=== PATIENT | male | born 1940 | race Caucasian/White ===

== ENCOUNTER → 2017-10-03 | Outpatient (CLI) | payer MEDICARE, OTHER ==
[~2017-10-03] MED LIST: ACET-461 PO; ALPR0.25 PO; ASPI81TA57 PO; ATOR80TA2 PO; Acetaminophen PO; BENA20TA2 PO; CALC-557 PO; CHOL100048 PO; CITA20TA12 PO; CLOP75TA28 PO; CLOP75TA69 PO; CYAN100014 PO; FELO10TA3 PO; FELO5TAB3 PO; HYDROCHLOROTHIAZIDE PO; LISI10TA2 PO; LOVA20TA2 PO; OMEG1CAP51 PO; Omega 3 Polyunsat Fatty Acids PO; POLY17PO23 PO; PSYL1PAC10 PO; PSYL1PAC18 PO; TRAM50TA2 PO; TRAZ-144 PO; TRIAMTERENE PO; Trazodone Hcl PO; VITA1CAP21 PO; [UNRECOGNIZED DRUG - OTHER]
[2017-10-03 10:44] LABS: BASOPHILS # (AUTO) 0.1 10^3/uL (0.0-0.1); BASOPHILS % (AUTO) 1 % (0-10); EOSINOPHILS # (AUTO) 0.3 10^3/uL (0.0-0.3); EOSINOPHILS % (AUTO) 5 % (0-10); HEMATOCRIT 43 % (40-54); HEMOGLOBIN 14.9 G/DL (13.3-17.7); LYMPHOCYTES # (AUTO) 1.7 X 10^3 (1.0-4.0); LYMPHOCYTES % (AUTO) 27 % (12-44); MEAN CORPUSCULAR HEMOGLOBIN 30 PG (25-34); MEAN CORPUSCULAR HGB CONC 35 G/DL (32-36); MEAN CORPUSCULAR VOLUME 86 FL (80-99); MEAN PLATELET VOLUME 10.7 FL (7.4-10.4); MONOCYTES # (AUTO) 0.5 X 10^3 (0.0-1.0); MONOCYTES % (AUTO) 8 % (0-12); NEUTROPHILS # (AUTO) 3.8 X 10^3 (1.8-7.8); NEUTROPHILS % (AUTO) 60 % (42-75); PLATELET COUNT 209 10^3/uL (130-400); RED BLOOD COUNT 4.97 10^6/uL (4.35-5.85); RED CELL DISTRIBUTION WIDTH 13.3 % (10.0-14.5); WHITE BLOOD COUNT 6.3 10^3/uL (4.3-11.0)
[2017-10-03 11:05] LABS: ALANINE AMINOTRANSFERASE 16 U/L (0-55); ALBUMIN 4.3 GM/DL (3.2-4.5); ALKALINE PHOSPHATASE 51 U/L (40-136); BILIRUBIN,TOTAL 1.4 MG/DL (0.1-1.0); BUN/CREATININE RATIO 20; CALCIUM 9.6 MG/DL (8.5-10.1); CARBON DIOXIDE 22 MMOL/L (21-32); CHLORIDE 106 MMOL/L (98-107); CREATININE SERUM 1.07 MG/DL (0.60-1.30); GFR ESTIMATED > 60; GLUCOSE 97 MG/DL (70-105); POTASSIUM 4.3 MMOL/L (3.6-5.0); SODIUM 139 MMOL/L (135-145); TOTAL PROTEIN 7.5 GM/DL (6.4-8.2)
[2017-10-03 11:45] LABS: ERYTHROCYTE SEDIMENTATION RATE 10 MM/HR (0-30)
== END ==
LOC: RAD 10:19
PROVIDERS: ATTEND Internal Medicine
DX: M54.16 Radiculopathy, lumbar region (principal)
CPT/HCPCS: 36415; 80053; 85025; 85652

== ENCOUNTER → 2018-03-31 | Outpatient (CLI) | payer MEDICARE, OTHER | LOC: CARD 08:19 | PROVIDERS: ATTEND Physician Assistant | DX: I25.10 Atherosclerotic heart disease of native coronary artery without angina pectoris (principal); I10 Essential (primary) hypertension; E78.5 Hyperlipidemia, unspecified | CPT/HCPCS: 93306 ==

== ENCOUNTER 2018-10-13 15:33 | Observation (INO) | payer MEDICARE, OTHER ==
[~2018-10-13] VITALS: Ht 182.9 cm; Wt 111.6 kg
--- OUTSIDE RECORDS SUMMARY | 2018-10-13 15:38 | XMS REPORT | Clinical Summary ---
Author Author User, [employer] Organization [facility] Address Unknown Phone Unavailable Allergies, Adverse Reactions, Alerts Allergy Name Reaction Description Start Date Severity Status Provider No Known Allergies [place] Main Conditions or Problems Problem Name Problem Code Onset Date Status Entry Date Provider Comment Standard Description Annotate TINEA CRURIS 110.3 Resolved Marielena Medina Dermatophytosis of groin and perianal area ELEVATED BLOOD PRESSURE WITHOUT DIAGNOSIS OF HYPERTENSION 796.2 Resolved Marielena Medina Elevated blood pressure reading without diagnosis of hypertension OBESITY 278.00 Resolved Marielena Medina Obesity, unspecified HYPERTENSION 401.1 Active Marielena Medina Benign essential hypertension HYPERCHOLESTEROLEMIA 272.0 Active Marielena Medina Pure hypercholesterolemia ANEMIA NOS 285.9 Resolved Marielena Medina Anemia, unspecified HYPERGLYCEMIA, MILD 790.6 Resolved Marielena Medina Other abnormal blood chemistry DIABETES MELLITUS, NONINSULIN DEPENDENT (NIDDM) 250.02 Active Marielena Medina Diabetes mellitus without mention of complication, type II or unspecified type, uncontrolled VITAMIN B12 DEFICIENCY 266.2 Active Marielena Medina Other B-complex deficiencies MICROALBUMINURIA 791.0 Active Marielena Medina Proteinuria SINUSITIS, SPHENOIDAL, ACUTE 461.3 Resolved Marielena Medina Acute sphenoidal sinusitis KNEE PAIN 719.46 Active Marielena Medina Pain in joint involving lower leg 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 Marielena Medina 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, 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 Marielena Medina Occlusion and stenosis of carotid artery, with cerebral infarction DEPRESSION 311 Active Marielena Medina Depressive disorder, not elsewhere classified ANXIETY 300.00 Active Marielena Medina Anxiety state, unspecified FECAL IMPACTION 560.32 Resolved Marielena Medina Fecal impaction ABDOMINAL PAIN, GENERALIZED 789.07 Resolved Marielena Medina Abdominal pain, generalized Medication List Medication Instructions Start Date Stop Date Generic Name NDC Status Provider Patient Instruction AFRIN SALINE NASAL MIST SOLN 1 SPRAY EACH NOSTRIL TID SALINE SOLN [id number] Active Marielena Medina DYAZIDE 37.5-25 MG CAPS 1 PO Daily TRIAMTERENE-HCTZ 97633731678 No Longer Active Marielena Medina TRAZODONE HCL 50 MG TABS 1 PO AT HS TRAZODONE HCL 76985387038 No Longer Active Marielena Medina FELODIPINE ER 10 MG LV24H-UHQ 1 PO daily FELODIPINE 08682547944 Active Marielena Medina METAMUCIL SMOOTH TEXTURE PACK 1 scoop PO BID PSYLLIUM PACK 77394483292 Active Marielena Medina MIRALAX POWD 1 scoop PO BID POLYETHYLENE GLYCOL 3350 04194919260 Active Marielena Medina XANAX 0.25 MG TABS 1 PO Q6hrs prn ALPRAZOLAM 12436084494 Active Marielena Medina CELEXA 20 MG TABS 1 PO daily CITALOPRAM HYDROBROMIDE 78878224631 Active Marielena Iesha Medina LIPITOR 80 MG TABS 1 PO DAILY ATORVASTATIN CALCIUM 36581375084 No Longer Active Krystina Talbert MULTIVITAMINS TABS 1 PO daily MULTIPLE VITAMIN 43038789088 No Longer Active Marielenabrendon Medina SUPER B-COMPLEX TABS 1 PO DAILY B SRTIWLE-ZFHNCR-QJ 68976890471 No Longer Active Marielena Iesha Medina ALEVE 220 MG TAB 2 PO QHS NAPROXEN SODIUM 43593910234 No Longer Active Marielena Iesha Medina MOBIC 15 MG TABS 1 PO daily MELOXICAM 73113277137 No Longer Active Marielena Iesha Medina LIPITOR 80 MG TABS 1 PO AT HS ATORVASTATIN CALCIUM 70604775819 Active Marielena Iesha Medina PLAVIX 75 MG TABS 1 PO DAILY CLOPIDOGREL BISULFATE 00549769808 Active Marielena Iesha Medina ASPIRIN EC LOW DOSE 81 MG TBEC 1 PO DAILY ASPIRIN 41900944307 Active Marielena Iesha Medina LOTENSIN 40 MG TABS 1 po daily BENAZEPRIL HCL 31094689810 No Longer Active Marielenabrendon Medina FISH OIL 1000 MG CAPS 1 PO BID WITH MEALS OMEGA-3 FATTY ACIDS 46985829378 Active Marielena Iesha Medina TYLENOL EXTRA STRENGTH 500 MG TABS 1 PO Q 4 HRS PRN PAIN ACETAMINOPHEN 22834313661 Active Marielena Iesha Medina B COMPLEX CAPS 1 po daily B COMPLEX VITAMINS 62864631590 Active Marielena Iesha Medina PROAIR HFA 108 (90 BASE) MCG/ACT AERS 2 puff Q4 hrs prn wheezing ALBUTEROL SULFATE 96651292880 No Longer Active Marielena Iesha Medina DOXYCYCLINE HYCLATE 100 MG CAP 1 po BID DOXYCYCLINE HYCLATE 49089577300 No Longer Active Marielena ROMERO NASAL SPRAY (DEXAMETHASONE, GENTAMICIN, SALINE) 2 puffs each nostril TID for [address] ROMERO NASAL SPRAY ( DEXAMETHASONE, GENTAMICIN, SALINE) No Longer Active Marielena Medina VITAMIN B-12 1000 MCG TABS 1 PO daily CYANOCOBALAMIN 02681425170 No Longer Active Marielena Medina VITAMIN B-12 1000 MCG TABS 1 PO daily CYANOCOBALAMIN 82762131387 No Longer Active Marielena Medina VITAMIN D 1000 UNIT TABS 1 PO Daily CHOLECALCIFEROL 62442913802 Active Marielena Medina LOVASTATIN 20 MG TABS 1 PO QHS LOVASTATIN 70225134269 No Longer Active Marielena Medina ASPIRIN 81 MG TABS 1 po daily ASPIRIN 49182177146 No Longer Active Marielena Medina ECONAZOLE NITRATE 1 % CREA Apply BID ECONAZOLE NITRATE 41974984877 No Longer Active Marielena Medina Immunizations Vaccine Administration Date Value Standard Description Influenza vaccine given Done influenza virus vaccine, unspecified formulation pneumococcal immunization administered [facility] 2008 pneumococcal polysaccharide vaccine, 23 valent dT (Diphtheria and Tetanus) booster given [facility] Td(adult ) unspecified formulation Vital Signs Date Name Value Unit Range Description blood pressure, diastolic - 8462-4 75 mm[Hg] BP edmondson blood pressure, systolic - 8480-6 142 mm[Hg] BP sys pulse rate E&M - 8867-4 68 /min Heart rate respiratory rate E&M - 9279-1 14 /min Resp rate temperature E&M 98.1 [degF] Body temperature weight E&M - 3141-9 230 [lb_av] Weight Measured blood pressure, diastolic - 8462-4 70 mm[Hg] BP edmondson blood pressure, systolic - 8480-6 138 mm[Hg] BP sys pulse rate E&M - 8867-4 72 /min Heart rate respiratory rate E&M - 9279-1 14 /min Resp rate temperature E&M 98.6 [degF] Body temperature weight E&M - 3141-9 235 [lb_av] Weight Measured blood pressure, diastolic - 8462-4 86 mm[Hg] BP edmondson blood pressure, systolic - 8480-6 110 mm[Hg] BP sys pulse rate E&M - 8867-4 90 /min Heart rate respiratory rate E&M - 9279-1 14 /min Resp rate temperature E&M 98.2 [degF] Body temperature weight E&M - 3141-9 233 [lb_av] Weight Measured blood pressure, diastolic - 8462-4 78 mm[Hg] BP edmondson blood pressure, systolic - 8480-6 130 mm[Hg] BP sys pulse rate E&M - 8867-4 68 /min Heart rate respiratory rate E&M - 9279-1 14 /min Resp rate blood pressure, diastolic - 8462-4 78 mm[Hg] BP edmondson blood pressure, systolic - 8480-6 164 mm[Hg] BP sys pulse rate E&M - 8867-4 66 /min Heart rate respiratory rate E&M - 9279-1 14 /min Resp rate weight E&M - 3141-9 255 [lb_av] Weight Measured Diagnostic Results Date Name Value Unit Range Description Clinical Lists Update: CBC,CMP ER LABS - Chemistry Estimated Glomerular Filtration Rate (calc) 56 mL/min/1.73m2 alanine aminotransferase (SGPT), serum 18 U/L creatinine, serum 1.27 mg/dL sodium, serum 136 mmol/L aspartate aminotransferase (SGOT), serum 16 U/L chloride, serum 106 mmol/L glucose, plasma fasting 146 mg/dL bilirubin, serum, total 1.5 mg/dL albumin, serum 4.1 g/dL potassium, serum 4.7 mmol/L alkaline phosphatase, serum 50 U/L carbon dioxide, venous blood 16 mmol/L urea nitrogen, blood 30 mg/dL protein, total, serum 7.3 g/dL calcium, serum 9.0 mg/dL Clinical Lists Update: CBC,CMP ER LABS - Hematology hematocrit, blood 48 % red blood cell distribution width 13.5 % mean corpuscular volume, RBC 85 fL leukocyte count, blood 12.8 10*3/mm3 erythrocyte (RBC) count 5.69 10*6/mm3 platelet count 205 10*3/mm3 hemoglobin, blood 16.6 g/dL Clinical Lists Update: CMP,CHOL,TRIG,HGA1C - Chemistry albumin, serum 4.5 g/dL alkaline phosphatase, serum 43 U/L urea nitrogen, blood 24 mg/dL calcium, serum 9.4 mg/dL chloride, serum 102 mmol/L cholesterol, serum 194 mg/dL carbon dioxide, venous blood 22.0 mmol/L creatinine, serum 1.0 mg/dL hemoglobin A1C, blood, as % of total hemoglobin 6.2 % potassium, serum 4.5 mmol/L protein, total, serum 6.9 g/dL aspartate aminotransferase (SGOT), serum 16 U/L alanine aminotransferase (SGPT), serum 20 U/L bilirubin, serum, total 0.8 mg/dL triglyceride, serum, fasting 144 mg/dL sodium, serum 136 mmol/L anion gap, serum 17 glucose, plasma fasting 109 mg/dL Estimated Glomerular Filtration Rate (calc) 79 mL/min/1.73m2 Clinical Lists Update: ER LABS - Chemistry Estimated Glomerular Filtration Rate (calc) >60 mL/min/1.73m2 albumin, serum 4.5 g/dL glucose, plasma fasting 123 mg/dL glucose, plasma fasting 105 mg/dL sodium, serum 136 mmol/L sodium, serum 134 mmol/L bilirubin, serum, total 0.8 mg/dL bilirubin, serum, total 1.7 mg/dL alanine aminotransferase (SGPT), serum 21 U/L alanine aminotransferase (SGPT), serum 22 U/L aspartate aminotransferase (SGOT), serum 17 U/L aspartate aminotransferase (SGOT), serum 29 U/L protein, total, serum 7.6 g/dL protein, total, serum 7.8 g/dL potassium, serum 4.1 mmol/L potassium, serum 4.5 mmol/L creatinine, serum 1.09 mg/dL creatinine, serum 1.64 mg/dL carbon dioxide, venous blood 20 mmol/L carbon dioxide, venous blood 22 mmol/L chloride, serum 103 mmol/L chloride, serum 98 mmol/L calcium, serum 9.8 mg/dL calcium, serum 9.9 mg/dL urea nitrogen, blood 19 mg/dL urea nitrogen, blood 28 mg/dL alkaline phosphatase, serum 57 U/L alkaline phosphatase, serum 55 U/L albumin, serum 4.3 g/dL Estimated Glomerular Filtration Rate (calc) 41 mL/min/1.73m2 Clinical Lists Update: ER LABS - Hematology red blood cell distribution width 13.4 % red blood cell distribution width 13.1 % mean corpuscular volume, RBC 85 fL mean corpuscular volume, RBC 84 fL leukocyte count, blood 8.8 10*3/mm3 leukocyte count, blood 9.2 10*3/mm3 erythrocyte (RBC) count 5.46 10*6/mm3 erythrocyte (RBC) count 5.63 10*6/mm3 platelet count 221 10*3/mm3 platelet count 259 10*3/mm3 hemoglobin, blood 16.0 g/dL hemoglobin, blood 16.4 g/dL hematocrit, blood 47 % hematocrit, blood 47 % Clinical Lists Update: ER LABS - Urinalysis appearance, urine Clear Yellow glucose, urine, semiquantitative neg RBC urine by microscopy none bacteria, urine microscopy trace hyaline casts, urine none /[LPF] epithelial cells, urine rare /[LPF] mucus on urinalysis neg blood in urine (hemoglobin) by dipstick neg urobilinogen, urine, semiquantitative (dipstick) normal specific gravity, urine 1.020 pH, urine, semiquantitative 5 nitrite, urine, semiquantitative neg ketones, urine, by test strip neg bilirubin, urine neg protein, urine, semiquantitative (dipstick) 1+ WBC urine on microscopy none {Cells}/[HPF] Clinical Lists Update: IN PT LABS - Chemistry albumin, serum 3.8 g/dL alkaline phosphatase, serum 63 U/L urea nitrogen, blood 24 mg/dL calcium, serum 9.3 mg/dL chloride, serum 106 mmol/L carbon dioxide, venous blood 24 mmol/L creatinine, serum 1.13 mg/dL potassium, serum 3.6 mmol/L protein, total, serum 6.7 g/dL aspartate aminotransferase (SGOT), serum 34 U/L alanine aminotransferase (SGPT), serum 35 U/L bilirubin, serum, total 1.0 mg/dL sodium, serum 138 mmol/L Estimated Glomerular Filtration Rate (calc) >60 mL/min/1.73m2 glucose, plasma fasting 94 mg/dL Clinical Lists Update: IN PT LABS - Hematology hemoglobin, blood 15.5 g/dL platelet count 249 10*3/mm3 erythrocyte (RBC) count 5.42 10*6/mm3 leukocyte count, blood 7.6 10*3/mm3 mean corpuscular volume, RBC 81 fL red blood cell distribution width 12.4 % hematocrit, blood 44 % Office Visit: Dr Medina'ricardo Check Up: Established Patient Visit - Chemistry sodium, serum 131 mmol/L albumin, serum 4.5 g/dL Estimated Glomerular Filtration Rate (calc) 29 mL/min/1.73m2 bilirubin, serum, total 1.7 mg/dL alanine aminotransferase (SGPT), serum 38 U/L aspartate aminotransferase (SGOT), serum 36 U/L protein, total, serum 7.7 g/dL potassium, serum 3.4 mmol/L creatinine, serum 2.20 mg/dL carbon dioxide, venous blood 22 mmol/L chloride, serum 93 mmol/L calcium, serum 10.0 mg/dL urea nitrogen, blood 42 mg/dL alkaline phosphatase, serum 75 U/L glucose, plasma fasting 119 mg/dL Office Visit: Dr Medina'ricardo Check Up: Established Patient Visit - Hematology leukocyte count, blood 9.2 10*3/mm3 mean corpuscular volume, RBC 81 fL red blood cell distribution width 12.4 % erythrocyte (RBC) count 5.30 10*6/mm3 hematocrit, blood 43 % hemoglobin, blood 15.3 g/dL platelet count 244 10*3/mm3 Office Visit: Dr Medina'ricardo Check Up: Established Patient Visit - Urinalysis blood in urine (hemoglobin) by dipstick neg protein, urine, semiquantitative (dipstick) 1+ epithelial cells, urine none /[LPF] hyaline casts, urine 0-2 /[LPF] bacteria, urine microscopy neg RBC urine by microscopy none WBC urine on microscopy 2-5 {Cells}/[HPF] appearance, urine Cloudy Yellow urobilinogen, urine, semiquantitative (dipstick) normal specific gravity, urine 1.015 pH, urine, semiquantitative 5 nitrite, urine, semiquantitative neg glucose, urine, semiquantitative neg bilirubin, urine neg ketones, urine, by test strip 1+ mucus on urinalysis neg Encounters Code Encounter Date Provider Facility CPT-95112 Ofc Vst, Est Level III 16:49:25 CDT Marielena Medina DO, FACP CPT-62451 Ofc Vst, Est Level IV 16:58:37 CDT Marielena Medina DO, FACP CPT-82591 Ofc Vst, Est Level IV 13:23:32 CDT Marielena Medina DO, FACP CPT-87272 Ofc Vst, Est Level III 13:12:49 CDT Marielena Batemanner, DO, FACP CPT-79549 Ofc Vst, Est Level III 16:50:36 [employer]AGE NE[employer] Marielena Flores Adam, DO, FACP CPT-43539 Ofc Vst, Est Level III 16:46:06 CDT Marielena Iesha Flores Adam, DO, FACP CPT-02000 Ofc Vst, Est Level III 12:52:37 CDT Marielena Iesha Flores Adam, DO, FACP CPT-59297 Ofc Vst, Est Level III 13:07:58 [employer] NE[employer] Marielena Flores Adam, DO, FACP CPT-33510 Ofc Vst, Est Level III 15:53:15 [employer]AGE NE[employer] Marielena Flores Adam, DO, FACP CPT-77536 Ofc Vst, Est Level IV 10:22:47 [employer]AGE NE[employer] Marielenabrendon Flores Adam, DO, FACP CPT-90823 Ofc Vst, Est Level IV 10:36:55 CDT Marielena Iesha Flores Adam, DO, FACP CPT-35162 Ofc Vst, Est Level IV 10:08:31 CDT Marielenabrendon Flores Adam, DO, FACP CPT-65032 Ofc Vst, New Level IV 10:02:32 [employer]AGE NEG[employer] Marielenabrendon Flores Adam, DO, FACP CPT-17142 Ofc Vst, Est Level IV 09:55:01 CDT Marielenabrendon Flores Adam, DO, FACP CPT-90798 Ofc Vst, Est Level IV 09:29:34 CDT Marielena Flores Adam, DO, FACP CPT-93003 Ofc Vst, Est Level IV 10:03:08 [employer]AGE NE[employer] Marielena Iesha Flores Adam, DO, FACP CPT-07160 Ofc Vst, Est Level IV 15:27:31 CDT Marielena Tinsleyi Ricardo Adam DO, FACP CPT-02236 Ofc Vst, Est Level V 09:26:28 CDT Marielena Tinsleyi Ricadro Adam DO, FACP CPT-31952 Ofc Vst, Est Level V 10:01:06 CDT Marielena Tinsleybrendon Medina DO, FACP CPT-60634 Ofc Vst, Est Level IV 09:30:43 [employer]AGE NEG[employer]ATOR Marielena Batemanner Marielena Ricardo Adam DO, FACP CPT-68468 Ofc Vst, New Level III 10:54:30 HOSTAGE NEG[employer]ATOR Marielena Tinsleyi Ricardo Adam DO, FACP CPT-28708 Ofc Vst, New Level III 18:13:[address] [facility] Procedures Code Procedure Name Date Entry Date Standard Description CPT-66406 Injection 12:25:11 CDT CPT-J3420 Vitamin b12 injection 12:25:11 CDT CPT-02375 Injection 16:50:36 [employer]AGE NE[employer] CPT-J3420 Vitamin b12 injection 16:50:36 HOSTAGE NEGOTIATOR CPT-26427 Injection 16:46:06 CDT CPT-J3420 Vitamin b12 injection 16:46:06 CDT CPT-G8443 E-Prescribing Medication Sent 12:52:37 CDT CPT-65547 Injection 12:19:33 [employer]AGE NE[employer]IATOR CPT-J3420 Vitamin b12 injection 12:19:33 HOSTAGE NEGOTIATOR CPT-G8443 E-Prescribing Medication Sent 13:07:58 HOSTAGE NEGOTIATOR CPT-G8443 E-Prescribing Medication Sent 16:30:49 CDT CPT-G0439 Medicare Annual Wellness Visit 16:30:49 CDT CPT-69230 Injection 12:50:56 CDT CPT-J3420 Vitamin b12 injection 12:50:56 CDT CPT-G8445 E-Prescribing Not sent due to no medication given 15:53: 15 [employer]AGE NEGOTIATOR CPT-12192 Injection 15:53:15 HOSTAGE NEGOTIATOR CPT-J3420 Vitamin b12 injection 15:53:15 HOSTAGE NEGOTIATOR CPT-07303 Injection 09:46:56 CDT CPT-J3420 Vitamin b12 injection 09:46:56 CDT CPT-G0438 Medicare Annual Wellness Visit Initial 10:22:49 CDT CPT-32856 Injection 10:22:47 HOSTAGE NEGOTIATOR CPT-J3420 Vitamin b12 injection 10:22:47 HOSTAGE NEGOTIATOR CPT-98571 Injection 10:01:34 HOSTAGE NEGOTIATOR CPT-J3420 Vitamin b12 injection 10:01:34 HOSTAGE NEGOTIATOR CPT-66481 Injection 10:36:55 CDT CPT-J3420 Vitamin b12 injection 10:36:55 CDT CPT-23326 Injection 10:08:31 CDT CPT-J3420 Vitamin b12 injection 10:08:31 CDT CPT-98391 Injection 09:05:20 CDT CPT-J3420 Vitamin b12 injection 09:05:20 CDT CPT-35952 Injection 10:02:32 HOSTAGE NEGOTIATOR CPT-J3420 Vitamin b12 injection 10:02:32 HOSTAGE NEGOTIATOR CPT-01612 Injection 09:55:01 CDT CPT-J3420 Vitamin b12 injection 09:55:01 CDT CPT-63696 Injection 09:53:17 CDT CPT-J3420 Vitamin b12 injection 09:53:17 CDT CPT-72141 Injection 14:36:22 CDT CPT-J3420 Vitamin b12 injection 14:36:22 CDT CPT-95533 Injection 09:29:34 CDT CPT-J3420 Vitamin b12 injection 09:29:34 CDT CPT-J3420 Vitamin b12 injection 10:03:08 HOSTAGE NEGOTIATOR CPT-G8443 E-Prescribing Medication Sent 09:26:28 CDT
--- OUTSIDE RECORDS SUMMARY | 2018-10-13 15:39 | XMS REPORT | Clinical Summary ---
Author Author User, [facility] [place] Address Unknown Phone Unavailable Allergies, Adverse Reactions, [...] 1 SPRAY EACH NOSTRIL TID SALINE SOLN [id number] Active Marielena Medina DYAZIDE 37.5-25 MG CAPS 1 PO Daily TRIAMTERENE-HCTZ 92329017229 No Longer Active Marielena Medina TRAZODONE HCL 50 MG TABS 1 PO AT HS TRAZODONE HCL 21458795996 No Longer Active Marielena Medina FELODIPINE ER 10 MG [id number] 1 PO daily FELODIPINE 73589002250 Active Marielena Medina METAMUCIL SMOOTH TEXTURE PACK 1 scoop PO BID PSYLLIUM PACK 32866018223 Active Marielena Medina MIRALAX POWD 1 scoop PO BID POLYETHYLENE GLYCOL 3350 72812661136 Active Marielena Medina XANAX 0.25 MG TABS 1 PO Q6hrs prn ALPRAZOLAM 03533309698 Active Marielena Medina CELEXA 20 MG TABS 1 PO daily CITALOPRAM HYDROBROMIDE 40534416596 Active Marielena Iesha Medina LIPITOR 80 MG TABS 1 PO DAILY ATORVASTATIN CALCIUM 73569105998 No Longer Active Krystina Talbert MULTIVITAMINS TABS 1 PO daily MULTIPLE VITAMIN 57946207372 No Longer Active Marielenabrendon Medina SUPER B-COMPLEX TABS 1 PO DAILY B LEPJIGX-CKHLHC-JL 67288253482 No Longer Active Marielena Iesha Medina ALEVE 220 MG TAB 2 PO QHS NAPROXEN SODIUM 86276877273 No Longer Active Marielena Iesha Medina MOBIC 15 MG TABS 1 PO daily MELOXICAM 25937619504 No Longer Active Marielena Iesha Medina LIPITOR 80 MG TABS 1 PO AT HS ATORVASTATIN CALCIUM 15942960393 Active Krystina Talbert PLAVIX 75 MG TABS 1 PO DAILY CLOPIDOGREL BISULFATE 84281308449 Active Krystina Talbert ASPIRIN EC LOW DOSE 81 MG TBEC 1 PO DAILY ASPIRIN 49472092675 Active Marielena Iesha Medina LOTENSIN 40 MG TABS 1 po daily BENAZEPRIL HCL 42464660851 No Longer Active Marielenabrendon Medina FISH OIL 1000 MG CAPS 1 PO BID WITH MEALS OMEGA-3 FATTY ACIDS 69478413008 Active Marielena Iesha Medina TYLENOL EXTRA STRENGTH 500 MG TABS 1 PO Q 4 HRS PRN PAIN ACETAMINOPHEN 17794169519 Active Marielena Iesha Medina B COMPLEX CAPS 1 po daily B COMPLEX VITAMINS 27109274416 Active Marielena Iesha Medina PROAIR HFA 108 (90 BASE) MCG/ACT AERS 2 puff Q4 hrs prn wheezing ALBUTEROL SULFATE 45120397113 No Longer Active Marielenabrendon Medina DOXYCYCLINE HYCLATE 100 MG CAP 1 po BID DOXYCYCLINE HYCLATE 03504322961 No Longer Active Marielena ROMERO NASAL SPRAY (DEXAMETHASONE, GENTAMICIN, SALINE) 2 puffs each nostril TID for [address] ROMERO NASAL SPRAY ( DEXAMETHASONE, GENTAMICIN, SALINE) No Longer Active Marielena Medina VITAMIN B-12 1000 MCG TABS 1 PO daily CYANOCOBALAMIN 07791951865 No Longer Active Marielena Medina VITAMIN B-12 1000 MCG TABS 1 PO daily CYANOCOBALAMIN 27772036625 No Longer Active Marielena Medina VITAMIN D 1000 UNIT TABS 1 PO Daily CHOLECALCIFEROL 46640454488 Active Marielena Medina LOVASTATIN 20 MG TABS 1 PO QHS LOVASTATIN 13648144352 No Longer Active Marielena Medina ASPIRIN 81 MG TABS 1 po daily ASPIRIN 80562179905 No Longer Active Marielena Medina ECONAZOLE NITRATE 1 % CREA Apply BID ECONAZOLE NITRATE 49882695136 No Longer Active Marielena Medina Immunizations Vaccine Administration Date Value Standard Description Influenza vaccine given Done influenza virus vaccine, unspecified formulation pneumococcal immunization administered [facility] 2008 pneumococcal polysaccharide vaccine, 23 valent dT (Diphtheria and Tetanus) booster given [facility] Td(adult ) unspecified formulation Vital Signs Date [...] Estimated Glomerular Filtration Rate (calc) 56 mL/min/1.73m2 protein, total, serum 7.3 g/dL sodium, serum 136 mmol/L bilirubin, serum, total 1.5 mg/dL alanine aminotransferase (SGPT), serum 18 U/L aspartate aminotransferase (SGOT), serum 16 U/L albumin, serum 4.1 g/dL alkaline phosphatase, serum 50 U/L urea nitrogen, blood 30 mg/dL calcium, serum 9.0 mg/dL chloride, serum 106 mmol/L carbon dioxide, venous blood 16 mmol/L creatinine, serum 1.27 mg/dL potassium, serum 4.7 mmol/L glucose, plasma fasting 146 mg/dL Clinical Lists Update: CBC,CMP ER LABS - Hematology hematocrit, blood 48 % hemoglobin, blood 16.6 g/dL platelet count 205 10*3/mm3 erythrocyte (RBC) count 5.69 10*6/mm3 leukocyte count, blood 12.8 10*3/mm3 red blood cell distribution width 13.5 % mean corpuscular volume, RBC 85 fL Clinical Lists Update: CBC,CMP,FLP,TSH,HGA1C,MICROALBUMIN - Chemistry creatinine, serum 0.9 mg/dL HDL cholesterol, serum 34.0 mg/dL cholesterol, serum 80 mg/dL chloride, serum 103 mmol/L calcium, serum 9.5 mg/dL urea nitrogen, blood 17 mg/dL alkaline phosphatase, serum 58 U/L albumin, serum 4.0 g/dL hemoglobin A1C, blood, as % of total hemoglobin 6.1 % thyroid stimulating hormone, serum 0.81 u[iU]/mL LDL cholesterol, serum 30 mg/dL potassium, serum 4.7 mmol/L protein, total, serum 6.3 g/dL aspartate aminotransferase (SGOT), serum 19 U/L alanine aminotransferase (SGPT), serum 26 U/L bilirubin, serum, total 1.1 mg/dL triglyceride, serum, fasting 81 mg/dL sodium, serum 135 mmol/L anion gap, serum 10 cholesterol/HDL ratio, serum, percent 2.4 glucose, plasma fasting 102 mg/dL Estimated Glomerular Filtration Rate (calc) 89 mL/min/1.73m2 carbon dioxide, venous blood 27.0 mmol/L Clinical Lists Update: CBC,CMP,FLP,TSH,HGA1C,MICROALBUMIN - Hematology red blood cell distribution width 14.8 % mean corpuscular volume, RBC 90 fL leukocyte count, blood 5.9 10*3/mm3 erythrocyte (RBC) count 4.08 10*6/mm3 platelet count 193 10*3/mm3 hemoglobin, blood 11.9 g/dL hematocrit, blood 36.7 % Clinical Lists Update: CBC,CMP,FLP,TSH,HGA1C,MICROALBUMIN - Urinalysis microalbumin, urine, semiquantitative 0.5 mg/dL Clinical Lists Update: CMP,CHOL,TRIG,HGA1C - Chemistry glucose, plasma fasting 109 mg/dL anion gap, serum 17 sodium, serum 136 mmol/L triglyceride, serum, fasting 144 mg/dL bilirubin, serum, total 0.8 mg/dL alanine aminotransferase (SGPT), serum 20 U/L aspartate aminotransferase (SGOT), serum 16 U/L protein, total, serum 6.9 g/dL potassium, serum 4.5 mmol/L hemoglobin A1C, blood, as % of total hemoglobin 6.2 % creatinine, serum 1.0 mg/dL carbon dioxide, venous blood 22.0 mmol/L cholesterol, serum 194 mg/dL chloride, serum 102 mmol/L calcium, serum 9.4 mg/dL urea nitrogen, blood 24 mg/dL alkaline phosphatase, serum 43 U/L albumin, serum 4.5 g/dL Estimated Glomerular Filtration Rate (calc) 79 mL/min/1.73m2 Clinical Lists Update: ER LABS - Chemistry Estimated Glomerular Filtration Rate (calc) 41 mL/min/1.73m2 albumin, serum 4.3 g/dL sodium, serum 134 mmol/L bilirubin, serum, total 1.7 mg/dL alanine aminotransferase (SGPT), serum 22 U/L aspartate aminotransferase (SGOT), serum 29 U/L protein, total, serum 7.8 g/dL potassium, serum 4.5 mmol/L creatinine, serum 1.64 mg/dL carbon dioxide, venous blood 22 mmol/L chloride, serum 98 mmol/L calcium, serum 9.9 mg/dL urea nitrogen, blood 28 mg/dL alkaline phosphatase, serum 55 U/L albumin, serum 4.5 g/dL Estimated Glomerular Filtration Rate (calc) >60 mL/min/1.73m2 glucose, plasma fasting 123 mg/dL sodium, serum 136 mmol/L bilirubin, serum, total 0.8 mg/dL alanine aminotransferase (SGPT), serum 21 U/L aspartate aminotransferase (SGOT), serum 17 U/L protein, total, serum 7.6 g/dL potassium, serum 4.1 mmol/L creatinine, serum 1.09 mg/dL carbon dioxide, venous blood 20 mmol/L chloride, serum 103 mmol/L calcium, serum 9.8 mg/dL urea nitrogen, blood 19 mg/dL alkaline phosphatase, serum 57 U/L glucose, plasma fasting 105 mg/dL Clinical Lists Update: ER LABS - Hematology red blood cell distribution width 13.1 % mean corpuscular volume, RBC 84 fL leukocyte count, blood 9.2 10*3/mm3 erythrocyte (RBC) count 5.63 10*6/mm3 platelet count 259 10*3/mm3 hemoglobin, blood 16.4 g/dL hematocrit, blood 47 % red blood cell distribution width 13.4 % mean corpuscular volume, RBC 85 fL leukocyte count, blood 8.8 10*3/mm3 erythrocyte (RBC) count 5.46 10*6/mm3 platelet count 221 10*3/mm3 hemoglobin, blood 16.0 g/dL hematocrit, blood 47 % Clinical Lists Update: [...] hematocrit, blood 44 % Office Visit: Dr Medina's Check Up: Established Patient Visit - Chemistry [...] neg Encounters Code Encounter Date Provider Facility CPT-48899 Ofc Vst, Est Level III 16:49:25 CDT Marielena Medina DO, FACP CPT-45673 Ofc Vst, Est Level IV 16:58:37 CDT Marielena Medina DO, FACP CPT-57053 Ofc Vst, Est Level IV 13:23:32 CDT Marielena Medina DO, FACP CPT-39132 Ofc Vst, Est Level III 13:12:49 CDT Marielenabrendon Flores Adam, DO, FACP CPT-71343 Ofc Vst, Est Level III 16:50:36 FUNERAL ASSISTANT Marielena Iesha Flores Medina, DO, FACP CPT-83849 Ofc Vst, Est Level III 16:46:06 CDT Marielena Iesha Flores Adam, DO, FACP CPT-66570 Ofc Vst, Est Level III 12:52:37 CDT Marielena Iesha Flores Adam, DO, FACP CPT-55320 Ofc Vst, Est Level III 13:07:58 FUNERAL ASSISTANT Marielena Flores Adam, DO, FACP CPT-98301 Ofc Vst, Est Level III 15:53:15 FUNERAL ASSISTANT Marielena Iesha Flores Adam, DO, FACP CPT-07167 Ofc Vst, Est Level IV 10:22:47 FUNERAL ASSISTANT Marielena Flores Adam, DO, FACP CPT-89990 Ofc Vst, Est Level IV 10:36:55 CDT Marielena Iesha Flores Adam, DO, FACP CPT-75270 Ofc Vst, Est Level IV 10:08:31 CDT Marielenabrendon Flores Adam, DO, FACP CPT-67868 Ofc Vst, New Level IV 10:02:32 FUNERAL ASSISTANT Marielena Flores Adam, DO, FACP CPT-52445 Ofc Vst, Est Level IV 09:55:01 CDT Marielena Iesha Peguero S Adam, DO, FACP CPT-11188 Ofc Vst, Est Level IV 09:29:34 CDT Marielena Iesha Batemanner Marielena Flores Adam, DO, FACP CPT-04817 Ofc Vst, Est Level IV 10:03:08 FUNERAL ASSISTANT Marielena Ieshasydni Medina DO, FACP CPT-28875 Ofc Vst, Est Level IV 15:27:31 CDT Marielena Julian Adam Marielenabrendon Medina DO, FACP CPT-55214 Ofc Vst, Est Level V 09:26:28 CDT Marielena Julian Adam Marielenabrendon Medina DO, FACP CPT-05930 Ofc Vst, Est Level V 10:01:06 CDT Marielena Batemanner Marielenabrendon Medina DO, FACP CPT-30529 Ofc Vst, Est Level IV 09:30:43 FUNERAL ASSISTANT Marielena Julian Adam Medina DO, FACP CPT-09643 Ofc Vst, New Level III 10:54:30 FUNERAL ASSISTANT Marielena Julian Adam Medina DO, FACP CPT-00514 Ofc Vst, New Level III 18:13:55 CDT Marielena Julian Medina [facility] [place] Procedures Code Procedure Name Date Entry Date Standard Description CPT-91585 Injection 12:25:11 CDT CPT-J3420 Vitamin b12 injection 12:25:11 CDT CPT-39397 Injection 16:50:36 FUNERAL ASSISTANT CPT-J3420 Vitamin b12 injection 16:50:36 FUNERAL ASSISTANT CPT-35766 Injection 16:46:06 CDT CPT-J3420 Vitamin b12 injection 16:46:06 CDT CPT-G8443 E-Prescribing Medication Sent 12:52:37 CDT CPT-58050 Injection 12:19:33 FUNERAL ASSISTANT CPT-J3420 Vitamin b12 injection 12:19:33 FUNERAL ASSISTANT CPT-G8443 E-Prescribing Medication Sent 13:07:58 FUNERAL ASSISTANT CPT-G8443 E-Prescribing Medication Sent 16:30:49 CDT CPT-G0439 Medicare Annual Wellness Visit 16:30:49 CDT CPT-22721 Injection 12:50:56 CDT CPT-J3420 Vitamin b12 injection 12:50:56 CDT CPT-G8445 E-Prescribing Not sent due to no medication given 15:53: 15 FUNERAL ASSISTANT CPT-53786 Injection 15:53:15 FUNERAL ASSISTANT CPT-J3420 Vitamin b12 injection 15:53:15 FUNERAL ASSISTANT CPT-02287 Injection 09:46:56 CDT CPT-J3420 Vitamin b12 injection 09:46:56 CDT CPT-G0438 Medicare Annual Wellness Visit Initial 10:22:49 CDT CPT-89909 Injection 10:22:47 FUNERAL ASSISTANT CPT-J3420 Vitamin b12 injection 10:22:47 FUNERAL ASSISTANT CPT-95218 Injection 10:01:34 FUNERAL ASSISTANT CPT-J3420 Vitamin b12 injection 10:01:34 FUNERAL ASSISTANT CPT-38495 Injection 10:36:55 CDT CPT-J3420 Vitamin b12 injection 10:36:55 CDT CPT-47539 Injection 10:08:31 CDT CPT-J3420 Vitamin b12 injection 10:08:31 CDT CPT-94385 Injection 09:05:20 CDT CPT-J3420 Vitamin b12 injection 09:05:20 CDT CPT-50381 Injection 10:02:32 FUNERAL ASSISTANT CPT-J3420 Vitamin b12 injection 10:02:32 FUNERAL ASSISTANT CPT-56388 Injection 09:55:01 CDT CPT-J3420 Vitamin b12 injection 09:55:01 CDT CPT-84926 Injection 09:53:17 CDT CPT-J3420 Vitamin b12 injection 09:53:17 CDT CPT-89825 Injection 14:36:22 CDT CPT-J3420 Vitamin b12 injection 14:36:22 CDT CPT-10413 Injection 09:29:34 CDT CPT-J3420 Vitamin b12 injection 09:29:34 CDT CPT-J3420 Vitamin b12 injection 10:03:08 FUNERAL ASSISTANT CPT-G8443 E-Prescribing Medication Sent 09:26:28 CDT
--- OUTSIDE RECORDS SUMMARY | 2018-10-13 15:43 | XMS REPORT ---
Author PETE Dinero [facility] e[employer] Address Unknown Phone Unavailable Care Team Providers Care Tire Inspector Name Role Phone PETE RAMIREZ Unavailable Allergies No Known Allergies Problems Problem Type Condition Code Onset Dates Condition Status Assessment Encounter for immunization Z23 Active Problem Need for prophylactic vaccination and inoculation, Influenza V04.81 Active Medications No Known Medications Procedures Procedure Coding System Code Date FLUARIX QUAD P-FREE 3 AND UP .50 2015 CPT-4 69065 Jun 25, 2016 SINGLE IMMUNIZATION ADMIN CPT-4 87728 Jun 25, 2016 TDAP (BOOSTRIX) CPT-4 81027 Jun 25, 2016 IMMUNIZATION ADMIN, EACH ADD (please include units) CPT-4 13569 Jun 25, 2016 Results No Known Results Immunizations Vaccine Administration Date TDAP (BOOSTRIX) Jun 25, 2016 FLUARIX QUAD P-FREE 3 AND UP .50 2015Jun 25, 2016 Summary Purpose eClinicalWorks Submission
--- OUTSIDE RECORDS SUMMARY | 2018-10-13 15:43 | XMS REPORT ---
Author PETE Dinero [facility] e[employer] Address Unknown Phone Unavailable Care Team Providers Care Openstack Developer Name Role Phone PETE RAMIREZ CP Unavailable Allergies No Known Allergies Problems Problem Type Condition Code Onset Dates Condition Status Assessment Encounter for immunization Z23 Active Problem Need for prophylactic vaccination and inoculation, Influenza V04.81 Active Medications No Known Medications Procedures Procedure Coding System Code Date PCV 13 CPT-4 57083 Jun 10, 2015 SINGLE IMMUNIZATION ADMIN CPT-4 32050 Jun 10, 2015 FLUZONE TRIV HIGH DOSE (65 & UP)-SANOFI PASTEUR-2014 CPT-4 41525 Jun 10, 2015 IMMUNIZATION ADMIN, EACH ADD (please include units) CPT-4 33662 Jun 10, 2015 Results No Known Results Immunizations Vaccine Administration Date FLUZONE TRIV HIGH DOSE (65 & UP)-SANOFI PASTEUR-2014Jun 10, 2015 PCV 13 Jun 10, 2015 Summary Purpose eClinicalWorks Submission
--- OUTSIDE RECORDS SUMMARY | 2018-10-13 15:43 | XMS REPORT | Clinical Summary ---
Author Author User, ValnevaIsaac Organization [facility] [place] Address Unknown Phone Unavailable Allergies, Adverse Reactions, [...] Depressive disorder, not elsewhere classified ANXIETY 300.00 Resolved Marielena Medina Anxiety state, unspecified FECAL IMPACTION 560.32 Resolved Marielena Medina Fecal impaction ABDOMINAL PAIN, GENERALIZED 789.07 Resolved Marielena Medina Abdominal pain, generalized Medication List Medication Instructions Start Date Stop Date Generic Name NDC Status Provider Patient Instruction AFRIN SALINE NASAL MIST SOLN 1 SPRAY EACH NOSTRIL TID SALINE SOLN 02468735771 Active Marielena Medina DYAZIDE 37.5-25 MG CAPS 1 PO Daily TRIAMTERENE-HCTZ 24735519090 No Longer Active Marielena Medina TRAZODONE HCL 50 MG TABS 1 PO AT HS TRAZODONE HCL 01357995512 No Longer Active Marielena Medina FELODIPINE ER 10 MG [id number] 1 PO daily FELODIPINE 82137550375 Active Marielena Medina METAMUCIL SMOOTH TEXTURE PACK 1 scoop PO BID PSYLLIUM PACK 47973951143 Active Marielena Medina MIRALAX POWD 1 scoop PO BID POLYETHYLENE GLYCOL 3350 85387550520 Active Marielena Medina XANAX 0.25 MG TABS 1 PO Q6hrs prn ALPRAZOLAM 60080475811 Active Marielena Medina CELEXA 20 MG TABS 1 PO daily CITALOPRAM HYDROBROMIDE 97806436404 Active Marielena Iesha Medina LIPITOR 80 MG TABS 1 PO DAILY ATORVASTATIN CALCIUM 43426230587 No Longer Active Krystina Talbert MULTIVITAMINS TABS 1 PO daily MULTIPLE VITAMIN 31125757419 No Longer Active Marielenabrendon Medina SUPER B-COMPLEX TABS 1 PO DAILY B [id number] 45615614236 No Longer Active Marielena Iesha Medina ALEVE 220 MG TAB 2 PO QHS NAPROXEN SODIUM 55723747358 No Longer Active Marielena Iesha Medina MOBIC 15 MG TABS 1 PO daily MELOXICAM 14685743970 No Longer Active Marielena Iesha Medina LIPITOR 80 MG TABS 1 PO AT HS ATORVASTATIN CALCIUM 33155670849 Active Krystina Talbert PLAVIX 75 MG TABS 1 PO DAILY CLOPIDOGREL BISULFATE 26535281861 Active Krystina Talbert ASPIRIN EC LOW DOSE 81 MG TBEC 1 PO DAILY ASPIRIN 53863199055 Active Marielena Iesha Medina LOTENSIN 40 MG TABS 1 po daily BENAZEPRIL HCL 64514746175 No Longer Active Marielenabrendon Medina FISH OIL 1000 MG CAPS 1 PO BID WITH MEALS OMEGA-3 FATTY ACIDS 35496175979 Active Marielena Iesha Medina TYLENOL EXTRA STRENGTH 500 MG TABS 1 PO Q 4 HRS PRN PAIN ACETAMINOPHEN 05551620869 Active Marielena Iesha Medina B COMPLEX CAPS 1 po daily B COMPLEX VITAMINS 96221648362 Active Marielena Iesha Medina PROAIR HFA 108 (90 BASE) MCG/ACT AERS 2 puff Q4 hrs prn wheezing ALBUTEROL SULFATE 86567842267 No Longer Active Marielenabrendon Medina DOXYCYCLINE HYCLATE 100 MG CAP 1 po BID DOXYCYCLINE HYCLATE 77144443987 No Longer Active Marielena ROMERO NASAL SPRAY (DEXAMETHASONE, GENTAMICIN, SALINE) 2 puffs each nostril TID for [address] ROMERO NASAL SPRAY ( DEXAMETHASONE, GENTAMICIN, SALINE) No Longer Active Marielena Medina VITAMIN B-12 1000 MCG TABS 1 PO daily CYANOCOBALAMIN 39368909889 No Longer Active Marielena Medina VITAMIN B-12 1000 MCG TABS 1 PO daily CYANOCOBALAMIN 88596635063 No Longer Active Marielena Medina VITAMIN D 1000 UNIT TABS 1 PO Daily CHOLECALCIFEROL 46337725274 Active Marielena Medina LOVASTATIN 20 MG TABS 1 PO QHS LOVASTATIN 64511240051 No Longer Active Marielena Medina ASPIRIN 81 MG TABS 1 po daily ASPIRIN 19330680262 No Longer Active Marielena Medina ECONAZOLE NITRATE 1 % CREA Apply BID ECONAZOLE NITRATE 01353244218 No Longer Active Marielena Medina Immunizations Vaccine Administration Date Value Standard Description Influenza vaccine given Done influenza virus vaccine, unspecified formulation pneumococcal immunization administered [facility] 2008 pneumococcal polysaccharide vaccine, 23 valent dT (Diphtheria and Tetanus) booster given [facility] Td(adult ) unspecified formulation Vital Signs Date Name Value Unit Range Description blood pressure, diastolic - 8462-4 72 mm[Hg] BP edmondson blood pressure, systolic - 8480-6 134 mm[Hg] BP sys pulse rate E&M - 8867-4 62 /min Heart rate respiratory rate E&M - 9279-1 14 /min Resp rate temperature E&M 98.0 [degF] Body temperature weight E&M - 3141-9 227 [lb_av] Weight Measured blood pressure, diastolic - 8462-4 75 mm[Hg] [...] Lists Update: CBC,CMP ER LABS - Chemistry glucose, plasma fasting 146 mg/dL creatinine, serum 1.27 mg/dL Estimated Glomerular Filtration Rate (calc) 56 mL/min/1.73m2 carbon dioxide, venous blood 16 mmol/L protein, total, serum 7.3 g/dL chloride, serum 106 mmol/L potassium, serum 4.7 mmol/L sodium, serum 136 mmol/L albumin, serum 4.1 g/dL alanine aminotransferase (SGPT), serum 18 U/L alkaline phosphatase, serum 50 U/L aspartate aminotransferase (SGOT), serum 16 U/L urea nitrogen, blood 30 mg/dL bilirubin, serum, total 1.5 mg/dL calcium, serum 9.0 mg/dL Clinical Lists Update: CBC,CMP ER LABS - Hematology hematocrit, blood 48 % red blood cell distribution width 13.5 % hemoglobin, blood 16.6 g/dL mean corpuscular volume, RBC 85 fL platelet count 205 10*3/mm3 leukocyte count, blood 12.8 10*3/mm3 erythrocyte (RBC) count 5.69 10*6/mm3 Clinical Lists Update: CBC,CMP,FLP,TSH,HGA1C,MICROALBUMIN - Chemistry albumin, serum 4.0 g/dL alkaline phosphatase, serum 58 U/L urea nitrogen, blood 17 mg/dL calcium, serum 9.5 mg/dL chloride, serum 103 mmol/L cholesterol, serum 80 mg/dL carbon dioxide, venous blood 27.0 mmol/L creatinine, serum 0.9 mg/dL HDL cholesterol, serum 34.0 mg/dL hemoglobin A1C, blood, as % of [...] Estimated Glomerular Filtration Rate (calc) 89 mL/min/1.73m2 Clinical Lists Update: CBC,CMP,FLP,TSH,HGA1C,MICROALBUMIN - Hematology erythrocyte (RBC) count 4.08 10*6/mm3 mean corpuscular volume, RBC 90 fL platelet count 193 10*3/mm3 red blood cell distribution width 14.8 % hemoglobin, blood 11.9 g/dL hematocrit, blood 36.7 % leukocyte count, blood 5.9 10*3/mm3 Clinical Lists Update: CBC,CMP,FLP,TSH,HGA1C,MICROALBUMIN - Urinalysis microalbumin, urine, semiquantitative 0.5 mg/dL Clinical Lists Update: CMP,CHOL,TRIG,HGA1C - Chemistry Estimated Glomerular Filtration Rate (calc) 79 mL/min/1.73m2 glucose, plasma fasting 109 mg/dL anion gap, [...] serum 43 U/L albumin, serum 4.5 g/dL Clinical Lists Update: ER LABS - Chemistry [...] Clinical Lists Update: ER LABS - Hematology hematocrit, blood 47 % red blood cell [...] blood 16.4 g/dL hematocrit, blood 47 % Clinical Lists Update: ER LABS - Urinalysis protein, urine, semiquantitative (dipstick) 1+ glucose, urine, semiquantitative neg mucus on urinalysis neg epithelial cells, urine rare /[LPF] hyaline casts, urine none /[LPF] bacteria, urine microscopy trace RBC urine by microscopy none WBC urine on microscopy none {Cells}/[HPF] appearance, urine Clear Yellow urobilinogen, urine, semiquantitative (dipstick) normal specific gravity, urine 1.020 pH, urine, semiquantitative 5 nitrite, urine, semiquantitative neg ketones, urine, by test strip neg bilirubin, urine neg blood in urine (hemoglobin) by dipstick neg Clinical Lists Update: IN PT LABS - Chemistry glucose, plasma fasting 94 mg/dL albumin, serum 3.8 g/dL alkaline phosphatase, serum 63 U/L urea nitrogen, blood 24 mg/dL calcium, serum 9.3 mg/dL chloride, serum 106 mmol/L carbon dioxide, venous blood 24 mmol/L Estimated Glomerular Filtration Rate (calc) >60 mL/min/1.73m2 sodium, serum 138 mmol/L bilirubin, serum, total 1.0 mg/dL alanine aminotransferase (SGPT), serum 35 U/L aspartate aminotransferase (SGOT), serum 34 U/L protein, total, serum 6.7 g/dL potassium, serum 3.6 mmol/L creatinine, serum 1.13 mg/dL Clinical Lists Update: IN PT LABS - Hematology red blood cell distribution width 12.4 % platelet count 249 10*3/mm3 erythrocyte (RBC) count 5.42 10*6/mm3 leukocyte count, blood 7.6 10*3/mm3 hemoglobin, blood 15.5 g/dL mean corpuscular volume, RBC 81 fL hematocrit, blood 44 % Office Visit: Dr [...] plasma fasting 119 mg/dL Office Visit: Dr Medina's Check Up: Established Patient Visit - Hematology [...] neg Encounters Code Encounter Date Provider Facility CPT-62133 Ofc Vst, Est Level III 12:40:20 CDT Marielena Iesha Flores Medina, DO, FACP CPT-16242 Ofc Vst, Est Level III 16:49:25 CDT Marielena Iesha Peguero S Medina, DO, FACP CPT-73060 Ofc Vst, Est Level IV 16:58:37 CDT Marielena Iesha Flores Medina, DO, FACP CPT-92422 Ofc Vst, Est Level IV 13:23:32 CDT Marielena Iesha Peguero S Medina, DO, FACP CPT-27571 Ofc Vst, Est Level III 13:12:49 CDT Marielena Iesha Peguero S Adam, DO, FACP CPT-31900 Ofc Vst, Est Level III 16:50:36 FRANCHISE MANAGER Marielena Iesha Flores Adam, DO, FACP CPT-26573 Ofc Vst, Est Level III 16:46:06 CDT Marielena Iesha Flores Medina, DO, FACP CPT-28291 Ofc Vst, Est Level III 12:52:37 CDT Marielena Iesha Flores Adam, DO, FACP CPT-02010 Ofc Vst, Est Level III 13:07:58 FRANCHISE MANAGER Marielena Iesha Flores Adam, DO, FACP CPT-10236 Ofc Vst, Est Level III 15:53:15 FRANCHISE MANAGER Marielena Iesha Peguero S Medina, DO, FACP CPT-44411 Ofc Vst, Est Level IV 10:22:47 FRANCHISE MANAGER Marielena Iesha Peguero S Medina, DO, FACP CPT-83172 Ofc Vst, Est Level IV 10:36:55 CDT Marielena Iesha Flores Adam, DO, FACP CPT-15059 Ofc Vst, Est Level IV 10:08:31 CDT Marielenabrendon Flores Adam, DO, FACP CPT-04622 Ofc Vst, New Level IV 10:02:32 FRANCHISE MANAGER Marielena Flores Adam, DO, FACP CPT-06029 Ofc Vst, Est Level IV 09:55:01 CDT Marielena Flores Adam, DO, FACP CPT-22825 Ofc Vst, Est Level IV 09:29:34 CDT Marielenabrendon Flores Adam, DO, FACP CPT-79026 Ofc Vst, Est Level IV 10:03:08 FRANCHISE MANAGER Marielena Flores Adam, DO, FACP CPT-68725 Ofc Vst, Est Level IV 15:27:31 CDT Marielena Flores Adam, DO, FACP CPT-75801 Ofc Vst, Est Level V 09:26:28 CDT Marielena Flores Medina, DO, FACP CPT-10135 Ofc Vst, Est Level V 10:01:06 CDT Marielena Flores Adam, DO, FACP CPT-94274 Ofc Vst, Est Level IV 09:30:43 FRANCHISE MANAGER Marielena Flores Adam, DO, FACP CPT-19784 Ofc Vst, New Level III 10:54:30 FRANCHISE MANAGER Marielena Flores Adam, DO, FACP CPT-61837 Ofc Vst, New Level III 18:13:55 CDT Marielena Medina [facility] [place] Procedures Code Procedure Name Date Entry Date Standard Description CPT-90205 Injection 12:25:11 CDT CPT-J3420 Vitamin b12 injection 12:25:11 CDT CPT-78597 Injection 16:50:36 FRANCHISE MANAGER CPT-J3420 Vitamin b12 injection 16:50:36 FRANCHISE MANAGER CPT-08798 Injection 16:46:06 CDT CPT-J3420 Vitamin b12 injection 16:46:06 CDT CPT-G8443 E-Prescribing Medication Sent 12:52:37 CDT CPT-69363 Injection 12:19:33 FRANCHISE MANAGER CPT-J3420 Vitamin b12 injection 12:19:33 FRANCHISE MANAGER CPT-G8443 E-Prescribing Medication Sent 13:07:58 FRANCHISE MANAGER CPT-G8443 E-Prescribing Medication Sent 16:30:49 CDT CPT-G0439 Medicare Annual Wellness Visit 16:30:49 CDT CPT-49993 Injection 12:50:56 CDT CPT-J3420 Vitamin b12 injection 12:50:56 CDT CPT-G8445 E-Prescribing Not sent due to no medication given 15:53: 15 FRANCHISE MANAGER CPT-31491 Injection 15:53:15 FRANCHISE MANAGER CPT-J3420 Vitamin b12 injection 15:53:15 FRANCHISE MANAGER CPT-59707 Injection 09:46:56 CDT CPT-J3420 Vitamin b12 injection 09:46:56 CDT CPT-G0438 Medicare Annual Wellness Visit Initial 10:22:49 CDT CPT-79894 Injection 10:22:47 FRANCHISE MANAGER CPT-J3420 Vitamin b12 injection 10:22:47 FRANCHISE MANAGER CPT-91713 Injection 10:01:34 FRANCHISE MANAGER CPT-J3420 Vitamin b12 injection 10:01:34 FRANCHISE MANAGER CPT-50015 Injection 10:36:55 CDT CPT-J3420 Vitamin b12 injection 10:36:55 CDT CPT-30172 Injection 10:08:31 CDT CPT-J3420 Vitamin b12 injection 10:08:31 CDT CPT-31852 Injection 09:05:20 CDT CPT-J3420 Vitamin b12 injection 09:05:20 CDT CPT-64995 Injection 10:02:32 FRANCHISE MANAGER CPT-J3420 Vitamin b12 injection 10:02:32 FRANCHISE MANAGER CPT-23647 Injection 09:55:01 CDT CPT-J3420 Vitamin b12 injection 09:55:01 CDT CPT-55724 Injection 09:53:17 CDT CPT-J3420 Vitamin b12 injection 09:53:17 CDT CPT-14093 Injection 14:36:22 CDT CPT-J3420 Vitamin b12 injection 14:36:22 CDT CPT-85429 Injection 09:29:34 CDT CPT-J3420 Vitamin b12 injection 09:29:34 CDT CPT-J3420 Vitamin b12 injection 10:03:08 FRANCHISE MANAGER CPT-G8443 E-Prescribing Medication Sent 09:26:28 CDT
--- NOTE | 2018-10-13 15:44 | ED General ---
General Stated Complaint: COUGH/CONGESTION/WEAKNESS Source of Information: Patient, Family Exam Limitations: No Limitations History of Present Illness Date Seen by Provider: Oct 13, 2018 Time Seen by Provider: 15:41 Initial Comments To ER per EMS private vehicle from home with a 2 day history of runny nose, cough, generalized weakness and poor appetite and a frontal headache. He had only a little bit of food and water yesterday, no food and even less water today. Concerned about dehydration. No nausea vomiting or diarrhea. No fevers. Timing/Duration: 1-2 Days Severity: Moderate Associated Systoms: Cough, Nausea/Vomiting, Weakness Allergies and Home Medications Allergies Coded Allergies: No Known Drug Allergies (Unverified , 08/27/14) Home Medications Acetaminophen 500 Mg Tablet, 500 MG PO Q4H PRN for PAIN, (Reported) Alprazolam 0.25 Mg Tablet, 0.25 MG PO Q6H PRN for ANXIETY, (Reported) Aspirin 81 Mg Tablet.dr, 81 MG PO DAILY, (Reported) Cholecalciferol (Vitamin D3) 1,000 Unit Capsule, 1,000 UNIT PO DAILY, (Reported) Citalopram Hydrobromide 20 Mg Tablet, 20 MG PO DAILY, (Reported) Clopidogrel Bisulfate 75 Mg Tablet, 75 MG PO DAILY, (Reported) Clopidogrel Bisulfate 75 Mg Tablet, 75 MG PO DAILY, (Reported) Docosahexanoic Acid/Epa 1 Cap Capsule, 1,000 MG PO BID, (Reported) Felodipine 10 Mg Tab.er.24h, 10 MG PO DAILY, (Reported) Psyllium Husk (with Sugar) 3.4 Gm Powd.pack, 1 PACKET PO BID, (Reported) Tramadol HCl 50 Mg Tablet, 50 MG PO Q4H PRN for PAIN Prescribed by: CAMI KATE on 06/21/15 1314 Vitamin B Complex 1 Cap Capsule, 1 CAP PO DAILY, (Reported) Patient Home Medication List Home Medication List Reviewed: Yes Review of Systems Review of Systems Constitutional: see HPI, chills, malaise, weakness EENTM: see HPI, nose congestion Respiratory: see HPI, cough Cardiovascular: no symptoms reported Genitourinary: no symptoms reported Musculoskeletal: no symptoms reported Skin: no symptoms reported Psychiatric/Neurological: Headache Hematologic/Lymphatic: No Symptoms Reported Immunological/Allergic: no symptoms reported Past Lktgbio-Rpbkov-Ertabn Hx Patient Social History Recent Foreign Travel: No Contact w/Someone Who Travel: No Immunizations Up To Date Tetanus Booster (TDap): More than 5yrs PED Vaccines UTD: No Date of Pneumonia Vaccine: Jun 02, 2011 Seasonal Allergies Seasonal Allergies: No Past Medical History Abdominal, Adenoidectomy, Joint Replacement, Orthopedic, Tonsillectomy High Cholesterol, Hypertension, Peripheral Vascular Stroke Reproductive Disorders: No Sexually Transmitted Disease: No HIV/AIDS: No Arthritis Diabetes, Non-Insulin dep Loss of Vision: Right Adverse Reaction/Blood Tranf: No Family Medical History Completed stroke 20 FATHER FH: cerebral palsy G8 BROTHER Hypertension G8 BROTHER No Pertinent Family Hx, Stroke Physical Exam Vital Signs Vital Signs - First Documented 10/13/18 15:38 Temp 98.5 Pulse 72 Resp 15 B/P (MAP) 169/70 (103) Pulse Ox 94 O2 Delivery Room Air Capillary Refill : Height, Weight, BMI Height: 6'0.00" Weight: 225lbs. oz. 102.269920yo; BMI Method:Actual General Appearance: No Apparent Distress, WD/WN, Obese, Other (alert and oriented GCS 15.) Eyes: Bilateral Eye Normal Inspection, Bilateral Eye PERRL, Bilateral Eye EOMI HEENT: PERRL/EOMI, Normal ENT Inspection, Other (does have rhinorrhea) Neck: Full Range of Motion, Normal Inspection Respiratory: No Accessory Muscle Use, No Respiratory Distress, Wheezing (faint respiratory wheeze left upper lobe) Cardiovascular: Regular Rate, Rhythm, Normal Peripheral Pulses Gastrointestinal: Normal Bowel Sounds, Non Tender, Soft Extremity: Normal Capillary Refill, No Pedal Edema Neurologic/Psychiatric: Alert, Oriented x3 Skin: Normal Color, Warm/Dry Progress/Results/Core Measures Suspected Sepsis SIRS Temperature: Pulse: Respiratory Rate: Laboratory Tests 10/13/18 15:45: White Blood Count 6.6 Blood Pressure / Mean: Laboratory Tests 10/13/18 15:45: Creatinine 1.36H, Platelet Count 172, Total Bilirubin 1.5H Results/Orders Lab Results Laboratory Tests Test 10/13/18 15:45 Range/Units White Blood Count 6.6 4.3-11.0 10^3/uL Red Blood Count 4.96 4.35-5.85 10^6/uL Hemoglobin 14.5 13.3-17.7 G/DL Hematocrit 43 40-54 % Mean Corpuscular Volume 86 80-99 FL Mean Corpuscular Hemoglobin 29 25-34 PG Mean Corpuscular Hemoglobin Concent 34 32-36 G/DL Red Cell Distribution Width 13.7 10.0-14.5 % Platelet Count 172 130-400 10^3/uL Mean Platelet Volume 11.0 H 7.4-10.4 FL Neutrophils (%) (Auto) 80 H 42-75 % Lymphocytes (%) (Auto) 7 L 12-44 % Monocytes (%) (Auto) 12 0-12 % Eosinophils (%) (Auto) 0 0-10 % Basophils (%) (Auto) 1 0-10 % Neutrophils # (Auto) 5.2 1.8-7.8 X 10^3 Lymphocytes # (Auto) 0.5 L 1.0-4.0 X 10^3 Monocytes # (Auto) 0.8 0.0-1.0 X 10^3 Eosinophils # (Auto) 0.0 0.0-0.3 10^3/uL Basophils # (Auto) 0.0 0.0-0.1 10^3/uL Neutrophils % (Manual) 81 % Lymphocytes % (Manual) 6 % Monocytes % (Manual) 7 % Eosinophils % (Manual) 0 % Basophils % (Manual) 2 % Band Neutrophils 4 % Blood Morphology Comment NORMAL Sodium Level 134 L 135-145 MMOL/L Potassium Level 4.3 3.6-5.0 MMOL/L Chloride Level 98 98-107 MMOL/L Carbon Dioxide Level 20 L 21-32 MMOL/L Anion Gap 16 H 5-14 MMOL/L Blood Urea Nitrogen 23 H 7-18 MG/DL Creatinine 1.36 H 0.60-1.30 MG/DL Estimat Glomerular Filtration Rate 51 BUN/Creatinine Ratio 17 Glucose Level 103 70-105 MG/DL Calcium Level 10.0 8.5-10.1 MG/DL Corrected Calcium 8.5-10.1 MG/DL Magnesium Level 2.4 1.8-2.4 MG/DL Total Bilirubin 1.5 H 0.1-1.0 MG/DL Aspartate Amino Transf (AST/SGOT) 32 5-34 U/L Alanine Aminotransferase (ALT/SGPT) 20 0-55 U/L Alkaline Phosphatase 57 40-136 U/L Troponin I < 0.028 <0.028 NG/ML B-Type Natriuretic Peptide 72.7 <100.0 PG/ML Total Protein 8.1 6.4-8.2 GM/DL Albumin 4.8 H 3.2-4.5 GM/DL Micro Results Microbiology 10/13/18 Influenza Types A,B Antigen (RACHEL) - Final, Complete My Orders Orders - SAY FARNSWORTH APRN Cbc With Automated Diff (10/13/18 15:34) BNP (10/13/18 15:34) Comprehensive Metabolic Panel (10/13/18 15:34) Influenza A And B Antigens (10/13/18 15:34) Troponin I (10/13/18 15:34) Ekg Tracing (10/13/18 15:34) Chest 1 View, Ap/Pa Only (10/13/18 15:34) Iv Heplock-Insert (Order) (10/13/18 15:34) Magnesium (10/13/18 15:34) Ua Culture If Indicated (10/13/18 15:36) Lactated Ringers (Lr 1000 Ml Iv Solution (10/13/18 15:45) Manual Differential (10/13/18 15:45) Vital Signs/I&O 10/13/18 15:38 Temp 98.5 Pulse 72 Resp 15 B/P (MAP) 169/70 (103) Pulse Ox 94 O2 Delivery Room Air Capillary Refill : Diagnostic Imaging Diagonstic Imaging: Xray Plain Films/CT/US/NM/MRI: chest Comments NAME: SANJUANITA HUYNH [facility] REC#: [id number] PT STATUS: REG ER : 1940 PHYSICIAN: SAY FARNSWORTH APRN ADMIT DATE: 10/13/18/ER Draft Date of Exam:10/13/18 CHEST 1 VIEW, AP/PA ONLY INDICATION: Cough, shortness of breath, and congestion. Frontal chest obtained at 04:09 p.m. and compared to 04/27/2015. Heart and mediastinal silhouette are normal in appearance. The lungs appear clear. There is no pneumothorax or pleural fluid. IMPRESSION: Negative chest, no change from 04/27/2015. Dictated on workstation # [id number] Dict: 10/13/18 1621 Trans: 10/13/18 1629 [id number] Interpreted by: CRISTAL DIGGS MD Electronically signed by: Departure Communication (Admissions) Time/Spoke to Admitting Phy: 16:[address] Pascual. We will admit, Tamiflu, IV fluids Oxygen saturation 91% on room air. Patient feels generally weak. He states his symptoms started about 2 days ago saw go ahead and start Tamiflu given his advanced age. His is most anxious and concerned and would like him to be admitted overnight for IV fluids. He did receive 1 L bolus here in the emergency room Impression Primary Impression: Influenza A Additional Impression: Weakness Disposition: ADMITTED INPATIENT Condition: Stable Admissions Decision to Admit Reason: Admit from ER (General) Decision to Admit/Date: Oct 13, 2018 Time/Decision to Admit Time: 16:37 Departure-Patient Inst. Referrals: REMIGIO PASCUAL DO (PCP/Family) Primary Care Physician SAY FARNSWROTH APRN Oct 13, 2018 15:44
[2018-10-13] MEDS ORDERED: LACTATED RINGERS 1,000 ML IV SCH (15:45)
--- OUTSIDE RECORDS SUMMARY | 2018-10-13 15:47 | XMS REPORT | Continuity of Care Document ---
Author Author [facility] Organization [facility] Address Unknown Phone Unavailable Allergies Active Description Code Type Severity Reaction Onset Reported/Identified Relationship to Patient Clinical Status Yes No Known Drug Allergies [id number] Drug Allergy Unknown N/A 08/27/2014 Medications There is no data. 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 NOS W CEREBRAL IN 01/24/2015 ALMA ROSA REARDON DO Ot 780.09 OTHER ALTERATION OF CONSCIOUSNESS 01/27/2015 DEMETRIO SWANSON MD Ot 401.9 HYPERTENSION NOS 01/27/2015 DEMETRIO SWANSON MD Ot 434.91 CEREBRAL ART OCCLUSION NOS W CEREBRAL IN 02/02/2015 JOSE KLEIN, CAROLINE Gray Ot 272.4 02/02/2015 CAROLINE GARCIA MD Ot 327.23 02/02/2015 CAROLINE GARCIA MD Ot 401.9 02/02/2015 CAROLINE GARCIA MD Ot 433.10 02/02/2015 CAROLINE GARCIA MD Ot 438.21 02/02/2015 CAROLINE GARCIA MD Ot 438.89 02/02/2015 GARCIA MD, CAROLINE E Ot 716.90 02/02/2015 JOSE KLEIN, CAROLINE E Ot 781.2 02/02/2015 JOSE KLEIN CAROLINE E Ot V43.65 02/02/2015 JOSE KLEIN, CAROLINE E Ot V57.89 02/04/2015 JOSE KLEIN, CAROLINE E Ot 272.4 02/04/2015 JOSE KLEIN CAROLINE E Ot 327.23 02/04/2015 CAROLINE GARCIA MD E Ot 401.9 02/04/2015 JOSE KLEIN CAROLINE E Ot 433.10 02/04/2015 JOSE KLEIN CAROLINE E Ot 438.21 02/04/2015 JOSE KLEIN CAROLINE E Ot 438.89 02/04/2015 JOSE KLEIN CAROLINE E Ot 716.90 02/04/2015 JOSE KLEIN CAROLINE E Ot 781.2 02/04/2015 JOSE KLEIN CAROLINE E Ot V43.65 02/04/2015 JOSE KLEIN CAROLINE E Ot V57.89 02/05/2015 JOSE KLEIN, CAROLINE E Ot 250.00 DIAB ODRITA WO COMPL, TYPE II OR UNSPEC TY 02/05/2015 JOSE KLEIN CAROLINE E Ot 266.2 B-COMPLEX DEFIC NEC 02/05/2015 JOSE KLEIN CAROLINE E Ot 272.4 HYPERLIPIDEMIA NEC/NOS 02/05/2015 JOSE KLEIN CAROLINE E Ot 278.00 OBESITY, NOS 02/05/2015 JOSE KLEIN, CAROLINE E Ot 327.23 OBSTRUCTIVE SLEEP APNEA (ADULT) (PEDIATR 02/05/2015 JOSE KLEIN, CAROLINE E Ot 368.46 HOMONYMOUS HEMIANOPSIA 02/05/2015 CAROLIEN GARCIA MD E Ot 401.9 02/05/2015 SANDRA GARCIA MDIC E Ot 403.90 HYPTNSV CHR KID DIS, UNSPEC, W CHR KD ST 02/05/2015 CAROLINE GARCIA MD E Ot 433.10 CAROTID ARTERY OCCLUSION W O CEREBRAL IN 02/05/2015 CAROLINE GARCIA MD E Ot 433.30 MULT BILTRAL ARTERY OCCLUSION WO CEREBRA 02/05/2015 CAROLINE GARCIA MD E Ot 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,HEMIPLEGIA AFFECTING 02/05/2015 JOSE KLEIN CAROLINE E Ot 438.89 OTH LATE EFFECT-CEREBROVASCULAR DISEASE 02/05/2015 SANDRA GARCIA MDIC E Ot 585.9 CHRONIC KIDNEY DISEASE, UNSPECIFIED 02/05/2015 JOSE KLEIN, CAROLINE Gray Ot 715.36 LOC OSTEOARTH NOS-L/LEG 02/05/2015 JOSE KLEIN, CAROLINE Gray Ot 716.90 02/05/2015 CAROLINE GARCIA MD Ot 781.2 ABNORMALITY OF GAIT 02/05/2015 CAROLINE GARCIA MD Ot 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 02/05/2015 CAROLINE GARCIA MD Ot V43.65 KNEE JOINT REPLACEMENT STATUS 02/05/2015 CAROLINE GARCIA MD Ot V57.89 REHABILITATION PROC NEC 02/05/2015 CAROLINE GARCIA MD Ot V85.34 BODY MASS INDEX 34.0-34.9, ADULT 02/13/2015 DUANE KLEIN, TATE T Ot 250.00 DIAB DORITA WO COMPL, TYPE II OR UNSPEC TY 02/13/2015 TATE ZEPEDA MD Ot 272.0 PURE HYPERCHOLESTEROLEM 02/13/2015 TATE ZEPEDA MD Ot 401.9 HYPERTENSION NOS 02/13/2015 TATE ZEPEDA MD T Ot 560.32 FECAL IMPACTION 02/13/2015 TATE ZEPEDA MD T Ot 564.00 UNSPEC CONSTIPATION 02/13/2015 TATE ZEPEDA MD T Ot 584.9 ACUTE RENAL FAILURE, UNSPECIFIED 02/13/2015 TATE ZEPEDA MD Ot 789.00 ABDOMINAL PAIN, UNSPECIFIED SITE 02/13/2015 TATE ZEPEDA MD T Ot V12.54 PERSONAL HX OF TIA, CEREBRAL INFARCTION 02/16/2015 REMIGIO PASCUAL DO Ot 211.3 BENIGN NEOPLASM LG BOWEL 02/16/2015 SAMARA LERMA REMIGIO Ot 250.00 DIAB DORITA WO COMPL, TYPE II OR UNSPEC TY 02/16/2015 SAMARA LERMA REMIGIO Ot 266.2 B-COMPLEX DEFIC NEC 02/16/2015 SAMARA LERMA REMIGIO Ot 272.4 HYPERLIPIDEMIA NEC/NOS 02/16/2015 SAMARA LERMA REMIGIO Ot 401.9 HYPERTENSION NOS 02/16/2015 SAMARA LERMA REMIGIO Ot 433.10 CAROTID ARTERY OCCLUSION W O CEREBRAL IN 02/16/2015 SAMARA LERMA REMIGIO Ot 438.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,HEMIPLEGIA AFFECTING 02/16/2015 SAMARA LERMA REMIGIO Ot 455.0 INT HEMORRHOID W/O COMPL 02/16/2015 PASCUAL DO, REMIGIO Ot 455.3 EXT HEMORRHOID W/O COMPL 02/16/2015 SAMARA LERMA REMIGIO Ot 560.32 FECAL IMPACTION 02/16/2015 SAMARA DO REMIGIO Ot 584.9 ACUTE RENAL FAILURE, UNSPECIFIED 02/16/2015 SAMARA LERMA REMIGIO Ot V57.1 PHYSICAL THERAPY NEC 02/16/2015 SAMARA LERMA REMIGIO Ot V57.21 ENCOUNTER FOR OCCUPATIONAL THERAPY 02/16/2015 [place]ARA DO REMIGIO Ot 438.7 02/16/2015 PASCUAL DO, REMIGIO Ot 438.89 02/16/2015 PASCUAL DO, REMIGIO Ot V57.21 02/18/2015 SAMARA LERMA REMIGIO Ot 438.7 02/18/2015 SAMARA LERMA REMIGIO Ot 438.89 02/18/2015 SAMARA LERMA REMIGIO Ot V57.21 02/22/2015 SAY FARNSWORTH APRN Ot 784.7 EPISTAXIS 02/22/2015 SAY FARNSWORTH WATER SERVICE SUPERVISOR Ot V12.54 PERSONAL HX OF TIA, CEREBRAL INFARCTION 02/22/2015 SAY FARNSWORTH APRN Ot V58.63 LONG-TERM(CURRENT)USE OF ANTIPLATELET/AN 02/22/2015 SAY FARNSWORTH APRN Ot V58.66 LONG-TERM (CURRENT) USE OF ASPIRIN 02/22/2015 SAMARA LERMA REMIGIO Ot 438.7 02/22/2015 PASCUAL DO, REMIGIO Ot 438.89 02/22/2015 PASCUAL DO, REMIGIO Ot V57.21 03/15/2015 PASCUAL DO, REMIGIO Ot 438.7 03/15/2015 PASCUAL DO, REMIGIO Ot 438.89 03/15/2015 PASCUAL DO, REMIGIO Ot V57.21 03/15/2015 PASCUAL DO, REMIGIO Ot 438.7 03/15/2015 PASCUAL DO, REMIGIO Ot 438.89 03/15/2015 PASCUAL DO, REMIGIO Ot V57.21 03/15/2015 PASCUAL DO, REMIGIO Ot 438.7 03/15/2015 PASCUAL DO, REMIGIO Ot 438.89 03/15/2015 PASCUAL DO, REMIGIO Ot V57.21 04/20/2015 PASCUAL DO, REMIGIO Ot 438.7 DISTURBANCES OF VISION 04/20/2015 REMIGIO PASCUAL DO Ot 438.89 OTH LATE EFFECT-CEREBROVASCULAR DISEASE 04/20/2015 REMIGIO PASCUAL DO Ot V57.21 ENCOUNTER FOR OCCUPATIONAL THERAPY 04/27/2015 COREY PAIGE MD Ot 272.4 HYPERLIPIDEMIA NEC/NOS 04/27/2015 COREY PAIGE MD Ot 401.9 HYPERTENSION NOS 04/27/2015 COREY PAIGE MD Ot 414.01 CORONARY ATHEROSCLEROSIS OF [place] CORON 04/27/2015 COREY PAIGE MD Ot 794.30 ABN CARDIOVASC STUDY NOS 04/27/2015 COREY PAIGE MD Ot V12.54 PERSONAL HX OF TIA, CEREBRAL INFARCTION 05/11/2015 COREY PAIGE MD Ot 272.4 05/11/2015 COREY PAIGE MD Ot 278.00 05/11/2015 COREY PAIGE MD Ot 424.0 05/11/2015 COREY PAIGE MD Ot 433.10 05/11/2015 COREY PAIGE MD Ot V85.32 06/21/2015 COREY PAIGE MD Ot 272.4 06/21/2015 COREY PAIGE MD Ot 278.00 06/21/2015 COREY PAIGE MD Ot 424.0 06/21/2015 COREY PAIGE MD Ot 433.10 06/21/2015 COREY PAIGE MD Ot V85.32 06/21/2015 CAMI DAVEY Ot M19.042 PRIMARY OSTEOARTHRITIS, LEFT HAND 06/21/2015 CAMI DAVEY Ot S60.222A CONTUSION OF LEFT HAND, INITIAL ENCOUNTE 06/21/2015 CAMI DAVEY Ot W30.0XXA CONTACT WITH [employer] [place], INITIAL 06/21/2015 CAMI DAVEY Ot Y92.[address] 06/21/2015 CAMI DAVEY Ot Y99.0 CIVILIAN ACTIVITY DONE FOR INCOME OR PAY 06/21/2015 CAMI DAVEY Ot Z79.82 DIRECTOR OF SOCIAL SERVICES (CURRENT) USE OF ASPIRIN 06/21/2015 CAMI DAVEY Ot Z79.899 OTHER LONGTERM (CURRENT) DRUG THERAPY 11/10/2015 REMIGIO PASCUAL DO Ot 211.3 11/10/2015 PASCUAL DO, REMIGIO Ot 250.00 11/10/2015 PASCUAL DO, REMIGIO Ot 266.2 11/10/2015 PASCUAL DO, REMIGIO Ot 272.4 11/10/2015 PASCUAL DO, REMIGIO Ot 401.9 11/10/2015 PASCUAL DO, REMIGIO Ot 433.10 11/10/2015 PASCUAL DO, REMIGIO Ot 438.20 11/10/2015 PASCUAL DO, REMIGIO Ot 455.0 11/10/2015 PASCUAL DO, REMIGIO Ot 455.3 11/10/2015 PASCUAL DO, REMIGIO Ot 560.32 11/10/2015 PASCUAL DO, REMIGIO Ot 584.9 11/10/2015 PASCUAL DO, REMIGIO Ot V57.1 11/10/2015 PASCUAL DO, REMIGIO Ot V57.21 10/02/2017 COREY PAIGE MD Ot 272.4 HYPERLIPIDEMIA NEC/NOS 10/02/2017 COREY PAIGE MD Ot 278.00 OBESITY, NOS 10/02/2017 COREY PAIGE MD Ot 424.0 MITRAL VALVE DISORDER 10/02/2017 COREY PAIGE MD Ot 433.10 CAROTID ARTERY OCCLUSION W O CEREBRAL IN 10/02/2017 COREY PAIGE MD Ot V85.32 BODY MASS INDEX 32.0-32.9, ADULT 10/04/2017 SAMARA LERMA REMIGIO Ot M54.16 RADICULOPATHY, LUMBAR REGION 10/25/2017 PASCUAL DO, REMIGIO Ot M54.16 RADICULOPATHY, LUMBAR REGION 03/31/2018 COREY PAIGE MD Ot 272.4 HYPERLIPIDEMIA NEC/NOS 03/31/2018 COREY PAIGE MD Ot 278.00 OBESITY, NOS 03/31/2018 COREY PAIGE MD Ot 424.0 MITRAL VALVE DISORDER 03/31/2018 COREY PAIGE MD Ot 433.10 CAROTID ARTERY OCCLUSION W O CEREBRAL IN 03/31/2018 COREY PAIGE MD Ot V85.32 BODY MASS INDEX 32.0-32.9, ADULT 03/31/2018 SAMARA LERMA REMIGIO Ot M54.16 RADICULOPATHY, LUMBAR REGION 04/01/2018 CATIE MOULTON Ot E78.5 HYPERLIPIDEMIA, UNSPECIFIED 04/01/2018 CATIE MOULTON Ot I10 ESSENTIAL (PRIMARY) HYPERTENSION 04/01/2018 CATIE MOULTON Ot I25.10 ATHSCL HEART DISEASE OF [place] CORONARY 04/22/2018 CATIE MOULTON Ot E78.5 HYPERLIPIDEMIA, UNSPECIFIED 04/22/2018 CATIE MOULTON Ot I10 ESSENTIAL (PRIMARY) HYPERTENSION 04/22/2018 CATIE MOULTON Ot I25.10 ATHSCL HEART DISEASE OF [place] CORONARY Procedures Code Description Performed By Performed On G0008 FLU ADMINISTRATION ( MEDICARE ONLY) 06/30/2013 81.92 INJECTION INTO JOINT 02/02/2015 99.23 INJECT STEROID 02/02/2015 Results Test Result Range Complete blood count (CBC) with automated white blood cell (WBC) differential - 10/03/17 10:39 Blood leukocytes automated count (number/volume) 6.3 10*3/uL 4.3-11.0 Blood erythrocytes automated count (number/volume) 4.97 10*6/uL 4.35-5.85 Venous blood hemoglobin measurement (mass/volume) 14.9 g/dL 13.3-17.7 Blood hematocrit (volume fraction) 43 % 40-54 Automated erythrocyte mean corpuscular volume 86 [foz_us] 80-99 Automated erythrocyte mean corpuscular hemoglobin (mass per erythrocyte) 30 pg 25-34 Automated erythrocyte mean corpuscular hemoglobin concentration measurement ( mass/volume) 35 g/dL 32-36 Automated erythrocyte distribution width ratio 13.3 % 10.0-14.5 Automated blood platelet count (count/volume) 209 10*3/uL 130-400 Automated blood platelet mean volume measurement 10.7 [foz_us] 7.4-10.4 Automated blood neutrophils/100 leukocytes 60 % 42-75 Automated blood lymphocytes/100 leukocytes 27 % 12-44 Blood monocytes/100 leukocytes 8 % 0-12 Automated blood eosinophils/100 leukocytes 5 % 0-10 Automated blood basophils/100 leukocytes 1 % 0-10 Blood neutrophils automated count (number/volume) 3.8 10*3 1.8-7.8 Blood lymphocytes automated count (number/volume) 1.7 10*3 1.0-4.0 Blood monocytes automated count (number/volume) 0.5 10*3 0.0-1.0 Automated eosinophil count 0.3 10*3/uL 0.0-0.3 Automated blood basophil count (count/volume) 0.1 10*3/uL 0.0-0.1 Comprehensive metabolic panel - 10/03/17 10:39 Serum or plasma sodium measurement (moles/volume) 139 mmol/L 135-145 Serum or plasma potassium measurement (moles/volume) 4.3 mmol/L 3.6-5.0 Serum or plasma chloride measurement (moles/volume) 106 mmol/L 98-107 Carbon dioxide 22 mmol/L 21-32 Serum or plasma anion gap determination (moles/volume) 11 mmol/L 5-14 Serum or plasma urea nitrogen measurement (mass/volume) 21 mg/dL 7-18 Serum or plasma creatinine measurement (mass/volume) 1.07 mg/dL 0.60-1.30 Serum or plasma urea nitrogen/creatinine mass ratio 20 NRG Serum or plasma creatinine measurement with calculation of estimated glomerular filtration rate > NRG Serum or plasma glucose measurement (mass/volume) 97 mg/dL 70-105 Serum or plasma calcium measurement (mass/volume) 9.6 mg/dL 8.5-10.1 Serum or plasma total bilirubin measurement (mass/volume) 1.4 mg/dL 0.1-1.0 Serum or plasma alkaline phosphatase measurement (enzymatic activity/volume) 51 U/L 40-136 Serum or plasma aspartate aminotransferase measurement (enzymatic activity/ volume) 19 U/L 5-34 Serum or plasma alanine aminotransferase measurement (enzymatic activity/volume ) 16 U/L 0-55 Serum or plasma protein measurement (mass/volume) 7.5 g/dL 6.4-8.2 Serum or plasma albumin measurement (mass/volume) 4.3 g/dL 3.2-4.5 Erythrocyte sedimentation rate by westergren method - 10/03/17 10:39 Erythrocyte sedimentation rate by westergren method 10 mm 0-30 Encounters ACCT No. Visit Date/Time Discharge Status Pt. Type Provider Facility Loc./Unit Complaint [id number] 10/07/2018 16:20:00 10/07/2018 23:59:59 CLS Preadmit ROYAL KLEIN, COREY [facility] SLEEP G47.33 GENE [id number] 03/31/2018 08:19:00 03/31/2018 23:59:59 CLS Outpatient CATIE MOULTON [facility] CARD CAD,CAROTID ARTERY STENOSIS [id number] 10/03/2017 10:19:00 10/03/2017 23:59:59 CLS Outpatient PASCUALREMIGIO DUARTE DO [facility] RAD LUMBAR RADICULOPATHY CHRONIC [id number] 06/21/2015 12:17:00 06/21/2015 13:24:00 DIS Emergency CAMI DAVEY [facility] ER LEFT HAND INJURY [id number] 04/27/2015 08:46:00 04/27/2015 18:05:00 DIS Outpatient COREY PAIGE MD [facility] CATH ABNORMAL STRESS,CVA,HTN, HLP [id number] 04/07/2015 13:08:00 04/20/2015 14:18:00 DIS Outpatient REMIGIO PASCUAL DO [facility] REHAB STROKE [id number] 04/18/2015 08:10:00 04/18/2015 23:59:59 CLS Outpatient COREY PAIGE MD [facility] CARD HLP,MR [id number] 02/22/2015 13:25:00 02/22/2015 14:02:00 DIS Emergency SAY FARNSWORTH APRN [facility] ER NOSE BLEED [id number] 02/14/2015 14:55:00 02/16/2015 15:28:00 DIS Outpatient REMIGIO PASCUAL DO [facility] SDC IMPACTION [id number] 02/13/2015 17:37:00 02/13/2015 21:08:00 DIS Emergency TATE ZEPEDA MD [facility] ER CONSTIPATION [id number] 01/27/2015 15:34:00 02/05/2015 09:15:00 DIS Inpatient JOSE KLEIN, CAROLINE Gray [facility] IRF STROKE [id number] 01/27/2015 11:54:00 01/27/2015 15:35:00 DIS Emergency DEMETRIO SWANSON MD [facility] ER POSS CVA [id number] 01/24/2015 21:27:00 01/24/2015 23:39:00 DIS Emergency ALMA ROSA REARDON DO [facility] ER DIFFICULTY REMEMBERING, WEAKNESS [id number] 01/23/2015 07:44:00 01/23/2015 12:50:00 DIS Emergency DUANE KLEIN, TATE Farah [facility] ER WEAKNESS [id number] 08/27/2014 11:22:00 08/27/2014 15:03:00 DIS Emergency DEMETRIO SWANSON MD [facility] ER VOMITING [id number] 06/30/2013 10:16:00 06/30/2013 23:59:59 CLS Outpatient PETE RAMIREZ DO [facility] 04/27/2015 10:11:41 ACT Document Registration
[2018-10-13 15:58] LABS: BASOPHILS % (AUTO) 1 % (0-10); EOSINOPHILS % (AUTO) 0 % (0-10); HEMATOCRIT 43 % (40-54); HEMOGLOBIN 14.5 G/DL (13.3-17.7); LYMPHOCYTES # (AUTO) 0.5 X 10^3 (1.0-4.0); LYMPHOCYTES % (AUTO) 7 % (12-44); MEAN CORPUSCULAR HEMOGLOBIN 29 PG (25-34); MEAN CORPUSCULAR HGB CONC 34 G/DL (32-36); MEAN CORPUSCULAR VOLUME 86 FL (80-99); MONOCYTES # (AUTO) 0.8 X 10^3 (0.0-1.0); MONOCYTES % (AUTO) 12 % (0-12); NEUTROPHILS # (AUTO) 5.2 X 10^3 (1.8-7.8); NEUTROPHILS % (AUTO) 80 % (42-75); PLATELET COUNT 172 10^3/uL (130-400); RED CELL DISTRIBUTION WIDTH 13.7 % (10.0-14.5); WHITE BLOOD COUNT 6.6 10^3/uL (4.3-11.0)
[2018-10-13 16:23] LABS: ALANINE AMINOTRANSFERASE 20 U/L (0-55); ALBUMIN 4.8 GM/DL (3.2-4.5); ALKALINE PHOSPHATASE 57 U/L (40-136); BILIRUBIN,TOTAL 1.5 MG/DL (0.1-1.0); BUN/CREATININE RATIO 17; CARBON DIOXIDE 20 MMOL/L (21-32); CHLORIDE 98 MMOL/L (98-107); CREATININE SERUM 1.36 MG/DL (0.60-1.30); GFR ESTIMATED 51; GLUCOSE 103 MG/DL (70-105); MAGNESIUM 2.4 MG/DL (1.8-2.4); POTASSIUM 4.3 MMOL/L (3.6-5.0); SODIUM 134 MMOL/L (135-145); TOTAL PROTEIN 8.1 GM/DL (6.4-8.2)
--- NOTE | 2018-10-13 16:30 | Diagnostic Imaging Report ---
INDICATION: Cough, shortness of breath, and congestion. Frontal chest obtained at 04:09 p.m. and compared to 04/27/2015. Heart and mediastinal silhouette are normal in appearance. The lungs appear clear. There is no pneumothorax or pleural fluid. IMPRESSION: Negative chest, no change from 04/27/2015. Dictated by: Dictated on workstation # [id number]
[2018-10-13 16:35] LABS: BAND NEUTROPHILS 4 %; BASOPHILS % (MANUAL) 2 %; EOSINOPHILS % (MANUAL) 0 %; LYMPHOCYTES % (MANUAL) 6 %; MONOCYTES % (MANUAL) 7 %; NEUTROPHILS % (MANUAL) 81 %
[2018-10-13 16:36] LABS: RBC MORPH NORMAL
--- OUTSIDE RECORDS SUMMARY | 2018-10-13 17:02 | XMS REPORT | Continuity of Care Document ---
Author Author [facility] Organization [facility] Address Unknown Phone Unavailable Allergies Active Description Code Type Severity Reaction Onset Reported/Identified Relationship to Patient Clinical Status Yes No Known Drug Allergies [id number] Drug Allergy Unknown N/A 08/27/2014 Medications There [...] JOSE KLEIN, CAROLINE E Ot 250.00 DIAB DORITA WO COMPL, TYPE II OR UNSPEC TY 02/05/2015 JOSE KLEIN CAROLINE E Ot 266.2 B-COMPLEX DEFIC NEC 02/05/2015 JOSE KLEIN CAROLINE E Ot 272.4 HYPERLIPIDEMIA NEC/NOS 02/05/2015 JOSE KLEIN CAROLINE E Ot 278.00 OBESITY, NOS 02/05/2015 JOSE KLEIN, CAROLINE E Ot 327.23 OBSTRUCTIVE SLEEP APNEA (ADULT) (PEDIATR 02/05/2015 JOSE KLEIN, CAROLINE E Ot 368.46 HOMONYMOUS HEMIANOPSIA 02/05/2015 CAROLINE GARCIA MD E Ot 401.9 02/05/2015 SANDRA [...] APRN Ot 784.7 EPISTAXIS 02/22/2015 SAY FARNSWORTH AUTOMOTIVE PARTS SPECIALIST Ot V12.54 PERSONAL HX OF TIA, CEREBRAL [...] PAIGE MD Ot 414.01 CORONARY ATHEROSCLEROSIS OF [place] CORON 04/27/2015 COREY PAIGE MD Ot 794.30 ABN CARDIOVASC STUDY NOS 04/27/2015 COREY PAIGE MD Ot V12.54 PERSONAL HX OF TIA, CEREBRAL INFARCTION 05/11/2015 COREY PAIGE MD Ot 272.4 05/11/2015 COREY PAIGE MD Ot 278.00 05/11/2015 COREY PAIGE MD Ot 424.0 05/11/2015 COREY PAIGE MD Ot 433.10 05/11/2015 COREY PAIGE MD Ot V85.32 06/21/2015 CROEY PAIGE MD Ot 272.4 06/21/2015 COREY PAIGE MD Ot 278.00 06/21/2015 COREY PAIGE MD Ot 424.0 06/21/2015 COREY PAIGE MD Ot 433.10 06/21/2015 COREY PAIGE MD Ot V85.32 06/21/2015 CAMI DAVEY Ot M19.042 PRIMARY OSTEOARTHRITIS, LEFT HAND 06/21/2015 CAMI DAVEY Ot S60.222A CONTUSION OF LEFT HAND, INITIAL ENCOUNTE 06/21/2015 CAMI DAVEY Ot W30.0XXA CONTACT WITH [employer] [place], INITIAL 06/21/2015 CAMI DAVEY Ot Y92.[address] 06/21/2015 CAMI DAVEY Ot Y99.0 CIVILIAN ACTIVITY DONE FOR INCOME OR PAY 06/21/2015 CAMI DAVEY Ot Z79.82 BOTTLE WASHER MACHINE (CURRENT) USE OF ASPIRIN 06/21/2015 CAMI DAVEY Ot Z79.899 OTHER HALFWAY (CURRENT) DRUG THERAPY 11/10/2015 REMIGIO PASCUAL DO [...] MOULTON Ot I25.10 ATHSCL HEART DISEASE OF [place] CORONARY 04/22/2018 CATIE MOULTON Ot E78.5 HYPERLIPIDEMIA, UNSPECIFIED 04/22/2018 CATIE MOULTON Ot I10 ESSENTIAL (PRIMARY) HYPERTENSION 04/22/2018 CATIE MOULTON Ot I25.10 ATHSCL HEART DISEASE OF [place] CORONARY Procedures Code Description Performed By Performed [...] Status Pt. Type Provider Facility Loc./Unit Complaint [id number] 10/07/2018 16:20:00 10/07/2018 23:59:59 CLS Preadmit ROYAL KLEIN, COREY [facility] SLEEP G47.33 GENE [id number] 03/31/2018 08:19:00 03/31/2018 23:59:59 CLS Outpatient CATIE MOULTON [facility] CARD CAD,CAROTID ARTERY STENOSIS [id number] 10/03/2017 10:19:00 10/03/2017 23:59:59 CLS Outpatient PASCUALREMIGIO DUARTE DO [facility] RAD LUMBAR RADICULOPATHY CHRONIC [id number] 06/21/2015 12:17:00 06/21/2015 13:24:00 DIS Emergency CAMI DAVEY [facility] ER LEFT HAND INJURY [id number] 04/27/2015 08:46:00 04/27/2015 18:05:00 DIS Outpatient COREY PAIGE MD [facility] CATH ABNORMAL STRESS,CVA,HTN, HLP [id number] 04/07/2015 13:08:00 04/20/2015 14:18:00 DIS Outpatient REMIGIO PASCUAL DO [facility] REHAB STROKE [id number] 04/18/2015 08:10:00 04/18/2015 23:59:59 CLS Outpatient COREY PAIGE MD [facility] CARD HLP,MR [id number] 02/22/2015 13:25:00 02/22/2015 14:02:00 DIS Emergency SAY FARNSWORTH APRN [facility] ER NOSE BLEED [id number] 02/14/2015 14:55:00 02/16/2015 15:28:00 DIS Outpatient REMIGIO PASCUAL DO [facility] SDC IMPACTION [id number] 02/13/2015 17:37:00 02/13/2015 21:08:00 DIS Emergency TATE ZEPEDA MD [facility] ER CONSTIPATION [id number] 01/27/2015 15:34:00 02/05/2015 09:15:00 DIS Inpatient JOSE KLEIN, CAROLINE Gray [facility] IRF STROKE [id number] 01/27/2015 11:54:00 01/27/2015 15:35:00 DIS Emergency DEMETRIO SWANSON MD [facility] ER POSS CVA [id number] 01/24/2015 21:27:00 01/24/2015 23:39:00 DIS Emergency ALMA ROSA REARDON DO [facility] ER DIFFICULTY REMEMBERING, WEAKNESS [id number] 01/23/2015 07:44:00 01/23/2015 12:50:00 DIS Emergency DUANE KLEIN, TATE Farah [facility] ER WEAKNESS [id number] 08/27/2014 11:22:00 08/27/2014 15:03:00 DIS Emergency DEMETRIO SWANSON MD [facility] ER VOMITING [id number] 06/30/2013 10:16:00 06/30/2013 23:59:59 CLS Outpatient PETE RAMIREZ DO [facility] 04/27/2015 10:11:41 ACT Document Registration
[2018-10-13] MEDS ORDERED: ATOR40TA70 PO (17:29)
[2018-10-13] MEDS ORDERED: ACETAMINOPHEN 325 MG TABLET PO PRN (17:45)
[2018-10-13] MEDS ORDERED: ONDANSETRON 4 MG/2 ML (SDV) Z0FRAN IV PRN (17:45)
[2018-10-13] MEDS ORDERED: CATHETER FLUSH 10 ML SYR IV PRN (17:45)
[2018-10-13] MEDS ORDERED: IBUPROFEN 600 MG (MOTRIN) TAB PO PRN (17:45)
[2018-10-13] MEDS ORDERED: OSELTAMIVIR 75 MG (TAMIFLU) CAPSULE PO SCH (18:00)
[2018-10-13] MEDS: BENZONATATE 100 MG (TESSALON) CAPSULE PO SCH (18:05)
[2018-10-13] MEDS: OSELTAMIVIR 30 MG (TAMIFLU) CAPSULE PO SCH (18:06)
[2018-10-13] MEDS: LACTATED RINGERS 1,000 ML IV SCH ×2 (18:06→20:40)
[2018-10-13 19:15] VITALS: BP 152/68
[2018-10-13 19:47] VITALS: BP 148/88
[2018-10-13] MEDS ORDERED: HYDROCODONE/CHLOR 10MG/5 ML (TUSSIONEX SUSP) 5ML UDC PO PRN (20:00)
[2018-10-13] MEDS ORDERED: ALPRAZolam 0.25 MG (XANAX) TAB PO PRN (20:00)
[2018-10-13] MEDS ORDERED: HYDROcodone/APAP 5 MG/325 MG (LORTAB) TAB PO PRN (20:00)
[2018-10-13] MEDS ORDERED: diphenhydrAMINE 25 MG TAB (BENADRYL) PO PRN (20:00)
[2018-10-13] MEDS ORDERED: DOCUSATE SODIUM 100 MG (COLACE) CAP PO PRN (20:00)
[2018-10-13] MEDS ORDERED: CALCIUM CARBONATE 500 MG (TUMS) TAB.CHEW PO PRN (20:00)
[2018-10-13 21:40] VITALS: BP 148/88
[2018-10-13] MEDS ORDERED: RT-ALBUTEROL SULF 2.5 MG/3 ML PRE-MIX VIAL INH PRN (22:00)
[2018-10-14] VITALS: BP 135/63
[2018-10-14 04:00] VITALS: BP 133/59
[2018-10-14 05:28] LABS: BASOPHILS % (AUTO) 1 % (0-10); EOSINOPHILS % (AUTO) 1 % (0-10); HEMATOCRIT 40 % (40-54); HEMOGLOBIN 13.6 G/DL (13.3-17.7); LYMPHOCYTES # (AUTO) 0.7 X 10^3 (1.0-4.0); LYMPHOCYTES % (AUTO) 16 % (12-44); MEAN CORPUSCULAR HEMOGLOBIN 29 PG (25-34); MEAN CORPUSCULAR HGB CONC 34 G/DL (32-36); MEAN CORPUSCULAR VOLUME 87 FL (80-99); MEAN PLATELET VOLUME 11.5 FL (7.4-10.4); MONOCYTES # (AUTO) 0.7 X 10^3 (0.0-1.0); MONOCYTES % (AUTO) 17 % (0-12); NEUTROPHILS # (AUTO) 2.8 X 10^3 (1.8-7.8); NEUTROPHILS % (AUTO) 66 % (42-75); PLATELET COUNT 131 10^3/uL (130-400); RED CELL DISTRIBUTION WIDTH 13.4 % (10.0-14.5); WHITE BLOOD COUNT 4.3 10^3/uL (4.3-11.0)
[2018-10-14 05:45] LABS: ALANINE AMINOTRANSFERASE 21 U/L (0-55); ALKALINE PHOSPHATASE 50 U/L (40-136); BILIRUBIN,TOTAL 0.9 MG/DL (0.1-1.0); BUN/CREATININE RATIO 19; CALCIUM 9.1 MG/DL (8.5-10.1); CARBON DIOXIDE 21 MMOL/L (21-32); CHLORIDE 100 MMOL/L (98-107); CREATININE SERUM 1.12 MG/DL (0.60-1.30); GFR ESTIMATED > 60; GLUCOSE 92 MG/DL (70-105); POTASSIUM 4.1 MMOL/L (3.6-5.0); SODIUM 133 MMOL/L (135-145); TOTAL PROTEIN 6.9 GM/DL (6.4-8.2)
[2018-10-14] MEDS: OSELTAMIVIR 30 MG (TAMIFLU) CAPSULE PO SCH (05:51)
[2018-10-14] MEDS: LACTATED RINGERS 1,000 ML IV SCH (06:36)
[2018-10-14 08:00] VITALS: BP 150/66
--- NOTE | 2018-10-14 08:24 | NUR ---
RENAL DOSING PROTOCOL: CHANGED TAMIFLU BACK TO 75MG PO BID DUE TO IMPROVED SCR/eCRCL GREATER THAN 60.
[2018-10-14] MEDS ORDERED: PSYL3.4P5 PO (08:29)
[2018-10-14] MEDS ORDERED: CITA20TA9 PO (08:29)
[2018-10-14] MEDS ORDERED: ASPI-983 PO (08:29)
[2018-10-14] MEDS ORDERED: CHOL200025 PO (08:29)
[2018-10-14] MEDS ORDERED: HYDR12.5 PO (08:29)
[2018-10-14] MEDS ORDERED: OMG1KC PO (08:29)
[2018-10-14] MEDS ORDERED: LISI-552 PO (08:29)
[2018-10-14] MEDS ORDERED: VITA1CAP PO (08:29)
[2018-10-14] MEDS ORDERED: ACET-168 PO (08:50)
--- NOTE | 2018-10-14 08:51 | NUR ---
THERE WAS A MEDICATION LIST BROUGHT IN BY THE PATIENT SCANNED INTO HIS CHART. I WENT OVER THAT WELL COMPARING WITH THE EXT MED HX WITH HIS OVER THE PHONE. THE PATIENT STATES HE DOES NOT KNOW HIS MEDICATIONS BY NAME, HIS HANDLES THEM FOR HIM. SHE VERIFIED IN ADDITION TO WHAT IS ON THE LIST SHE LEFT HE TAKES TYLENOL PRN.
[2018-10-14] MEDS ORDERED: RELABEL FOR HOME USE MC SCH (09:30)
[2018-10-14] MEDS ORDERED: NON-FORMULARY MEDICATION 1 EA EA (Acetaminophen (Acetaminophen Extra Strength) 500 MG) PO PRN (09:30)
--- NOTE | 2018-10-14 09:30 | Short Stay Summary-Hospitalist ---
History of Present Illness HPI/Chief Complaint Chief complaint: Influenza A HPI: This is a 78yoWM clinic patient of mine with a history of prior stroke and HTN who presents after unable to walk at home with fever and chills found to have Influenza A. Hyponatremia and acute renal insufficiency was identified in the ER and he met criteria for IV fluids, Tamiflu initiation and cough suppressant. He is doing very well, will initiate physical therapy, continue IV fluids, advance diet but DC today on Tamiflu Source: patient, family, RN/MD Exam Limitations: no limitations Date Seen 10/14/18 Time Seen by a Provider: 09:00 Attending Physician Marielena Medina DO PCP Marielena Medina DO Referring Physician Date of Admission Oct 13, 2018 at 16:44 Home Medications & Allergies Home Medications Reviewed patient Home Medication Reconciliation performed by pharmacy medication reconciliations appliance technician and/or nursing. Patients Allergies have been reviewed. Allergies Allergies Coded Allergies No Known Drug Allergies ([id number]/26/14) Past Poeinsg-Essukh-Lmqact Hx Past Med/Social Hx: Reviewed Nursing Past Med/Soc Hx, Reviewed and Corrections made Patient Social History Marrital Status: Employed/Student: employed ([employer]) Alcohol Use: Denies Use Recreational Drug Use: No Smoking Status: Never a Smoker 2nd Hand Smoke Exposure: No Recent Foreign Travel: No Contact w/other who traveled: No Recent Infectious Disease Expo: No Immunizations Up To Date Tetanus Booster (TDap): More than 5yrs Pediatric: No Date of Pneumonia Vaccine: Sep 02, 2013 Date of Influenza Vaccine: Jun 02, 2018 Seasonal Allergies Seasonal Allergies: No Past Medical History Surgeries: Abdominal, Adenoidectomy, Joint Replacement, Orthopedic, Tonsillectomy Cardiac: High Cholesterol, Hypertension, Peripheral Vascular Neurological: Stroke Reproductive: No Sexually Transmitted Disease: No HIV/AIDS: No incontinence 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 Gastrointestinal: Chronic Constipation Musculoskeletal: Arthritis Endocrine: Diabetes, Non-Insulin dep Loss of Vision: Right History of Blood Disorders: No Adverse Reaction to Blood Edward: No Family History Completed stroke 19 FATHER FH: cerebral palsy G8 BROTHER Hypertension G8 BROTHER No Pertinent Family Hx, Stroke Review of Systems Constitutional: see HPI, chills, diaphoresis, dizziness, fever, malaise, weakness EENTM: no symptoms reported Respiratory: cough Cardiovascular: no symptoms reported Gastrointestinal: no symptoms reported Genitourinary: no symptoms reported Musculoskeletal: muscle pain Skin: no symptoms reported Psychiatric/Neurological: No Symptoms Reported All Other Systems Reviewed Negative Unless Noted: Yes Physical Exam Physical Exam Vital Signs Vital Signs - First Documented 10/13/18 21:40 FiO2 21 Capillary Refill : Less Than 3 Seconds Height, Weight, BMI Height: 6'0.00" Weight: 246lbs. 0.0oz. [id number]; 31.7 BMI Method:Stated General Appearance: No Apparent Distress, WD/WN, Obese, Other (mildly acutely ill) Eyes: Bilateral Eye Normal Inspection, Bilateral Eye PERRL, Bilateral Eye EOMI HEENT: PERRL/EOMI, Normal ENT Inspection, Other (does have rhinorrhea) Neck: Full Range of Motion, Normal Inspection Respiratory: No Accessory Muscle Use, No Respiratory Distress, Wheezing (faint respiratory wheeze left upper lobe) Cardiovascular: Regular Rate, Rhythm, Normal Peripheral Pulses Gastrointestinal: Normal Bowel Sounds, Non Tender, Soft Extremity: Normal Capillary Refill, No Pedal Edema Neurologic/Psychiatric: Alert, Oriented x3 Skin: Normal Color, Warm/Dry Results Results/Procedures Labs Laboratory Tests 10/13/18 15:45 10/14/18 05:18 Patient resulted labs reviewed. Short Stay Diagnosis Discharge Diagnosis-Short Stay Admission Diagnosis Influenza A acute Cough Hyponatremia ARF Prior CVA HTN DM Vit B12 deficiency Final Discharge Diagnosis Influenza A acute Cough Hyponatremia ARF Prior CVA HTN DM Vit B12 deficiency Conclusion Plan Plan: DC home as long as able to eat and walk Complete Tamiflu Diagnosis/Problems Diagnosis/Problems (1) Influenza A Status: Acute (2) Cough Status: Acute (3) Hyponatremia Status: Acute (4) Renal insufficiency Status: Acute (5) Dehydration Status: Acute (6) Fever Status: Acute Qualifiers: Qualified Codes: R50.9 - Fever, unspecified (7) Cerebrovascular accident, old Status: Chronic (8) Hypertension Status: Chronic Qualifiers: Qualified Codes: I10 - Essential (primary) hypertension (9) Diabetes mellitus Status: Chronic Qualifiers: Qualified Codes: E11.9 - Type 2 diabetes mellitus without complications (10) B12 deficiency Status: Chronic Clinical Quality Measures DVT/VTE Risk/Contraindication: Risk Factor Score Per Nursin RFS Level Per Nursing on Admit: 4+=Very High MARIELENA MEDINA DO Oct 14, 2018 09:30
[2018-10-14] MEDS ORDERED: OSLT75C PO (09:32)
[2018-10-14] MEDS ORDERED: BENZ100C18 PO (09:32)
[2018-10-14] MEDS ORDERED: OSELTAMIVIR 75 MG (TAMIFLU) CAPSULE PO SCH ×2 (10:00→18:00)
[2018-10-14] MEDS: BENZONATATE 100 MG (TESSALON) CAPSULE PO SCH ×2 (10:42→13:52)
--- NOTE | 2018-10-14 10:43 | Physical Therapy Evaluation ---
PT Evaluation-General Medical Diagnosis Admission Date Oct 13, 2018 at 16:44 Medical Diagnosis: Influenza A, weakness Onset Date: Oct 13, 2018 Therapy Diagnosis Therapy Diagnosis: decreased mobility Height/Weight Height (Feet): 6 Height (Inches): 0.00 Weight (Pounds): 246 Weight (Ounces): 0.0 Precautions Precautions/Isolations: Droplet Isolation, Fall Prevention, Standard Precautions Weight Bear Status Right Lower Extremity: Right Full Weight Bearing Left Lower Extremity: Left Full Weight Bearing Referral Physician: Dr. Medina Reason for Referral: Evaluation/Treatment Medical History Pertinent Medical History: Arthritis, CVA, DM, HTN, PVD Additional Medical History L TKA Current History Er via private vehicle with 2 day history of runny nose, cough, weakness, and headache. Reviewed History: Yes Social History Home: Single Level Current Living Status: Spouse Entry Into Home: Stairs With Railing PT Steps Into Home: 3 Prior/Core FIM Prior Level of Function Therapy Code Descriptions/Definitions Functional [place] Measure: 0=Not Assessed/NA 4=Minimal Assistance 1=Total Assistance 5=Supervision or Setup 2=Maximal Assistance 6=Modified [place] 3=Moderate Assistance 7=Complete [place] Therapy Quality Codes: 6 Independent with activity with or without an assistive device 5 Patient requires set up or clean up by helper. Patient completes activity by themselves 4 Supervision or touching assist (CGA). Imbler provide cues , steadying assist 3 The helper provides less than half the effort to complete the activity 2 The helper provides more than half the effort to complete the activity 1 Dependent. The helper does all the effort to complete an activity 7 Patient refused to complete or attempt activity 9 The patient did not perform the activity before the current illness or injury 88 Not attempted due to Medical conditions or safety concerns Functional Abilities and Goals: Independent: Patient completed the activities by him/herself, with or without an assistive device, with no assistance from a helper. Needed Some Help: Patient needed partial assistance from another person to complete activities. Dependent: A helper completed the activities for the patient. Unknown: Not Applicable: Bed Mobility: 7 Transfers (B,C,W/C) (FIM): 7 Gait: 7 Stairs: 7 Indoor Mobility (Ambulation): Independent Stairs: Independent Prior Devices Use: None Pt reports he does have a walker at home but he doesn't use it. PT Evaluation-Current Subjective Pt is in recliner and agrees to PT. Pain Numeric Pain Scale: 0-No Pain Location: No Pain Reported Pt/Family Goals Pt to return home with spouse. Objective Patient Orientation: Person, Place, Situation, Normal For Age Attachments: IV ROM/Strength ROM Lower Extremities NT Strength Lower Extremities NT Integumentary/Posture Bowel Incontinence: No Bladder Incontinence: No Neuromuscular (Tone, Coordination, Reflexes) NT Sensory Vision: Hearing: Functional Sensation Lower Extremities NT Transfers Therapy Code Descriptions/Definitions Functional [place] Measure: 0=Not Assessed/NA 4=Minimal Assistance 1=Total Assistance 5=Supervision or Setup 2=Maximal Assistance 6=Modified [place] 3=Moderate Assistance 7=Complete [place] Transfers (B, C, W/C) (FIM): 6 Scootin Sit to/from Stand: 6 Gait Mode of Locomotion: Walk Anticipated Mode of Locomotion: Walk Gait (FIM): 6 Distance (FIM): 3=150 ft Distance: 300' Gait Level of Assist: 6 Gait Persons Needed: 1 Gait Assistive Device: FWW Balance Sitting Static: Good Sitting Dynamic: Good Standing Static: Good Standing Dynamic: Good Assessment/Needs Pt requested to use bathroom and was mod indep with transfers from recliner to FWW. Pt was able to amb 10' with FWW indep with PT assisting with IV and remained standing during bathroom skills. Pt able to amb 300' with FWW indep. Pt returned to room and reported fatigued. Pt is now in recliner with all needs met. Pt reports he is being dismissed at 1 this afternoon per Rehab Potential: Good Post Rehab Potential-Barriers: co-morbidities PT Short Term Goals Short Term Goals Time Frame: Oct 21, 2018 Transfers (B,C,W/C) (FIM): 7 Gait (FIM): 7 Distance (FIM): 3=150 ft Gait Distance Comment: 300' Gait Level of Assist: 7 PT Plan Problem List Problem List: Activity Tolerance, Functional Strength, Safety, Gait Treatment/Plan Treatment Plan: Continue Plan of Care Treatment Plan: Education, Functional Activity Joe, Functional Strength, Gait , Safety Treatment Duration: Oct 21, 2018 Frequency: 6 times per week Estimated Hrs Per Day: .25 hour per day Patient and/or Family Agrees t: Yes Safety Risks/Education Patient Education: Gait Training, Transfer Techniques, Correct Positioning, Safety Issues Discharge Recommendations Therapy D/C Recommendations: Home w/ Family Support, Home Independently Time/GCodes Time In: 1010 Time Out: 1025 Total Billed Treatment Time: 15 Total Billed Treatment 1 visit EVlowC 15 min FRANKIE COLLINS PT Oct 14, 2018 10:42
[2018-10-14 13:50] VITALS: BP 150/66
[2018-10-14] MEDS ORDERED: ASPIRIN E.C. 81 MG (ECOTRIN) TAB PO SCH (21:00)
[2018-10-14] MEDS ORDERED: FELODIPINE 10 MG PO SCH (21:00)
[2018-10-15] MEDS ORDERED: lisINopril 20 MG (PRINIVIL) TABLET PO SCH (09:00)
== END 2018-10-14 13:50 | disposition home or self-care (01) ==
LOC: EDUNIT# 15:33 → ER 15:34 → 4TH 16:44
PROVIDERS: ADMIT Internal Medicine; ATTEND Internal Medicine
DX: J10.1 Influenza due to other identified influenza virus with other respiratory manifestations (principal); E87.1 Hypo-osmolality and hyponatremia; N17.9 Acute kidney failure, unspecified; I10 Essential (primary) hypertension; E11.9 Type 2 diabetes mellitus without complications; E53.8 Deficiency of other specified B group vitamins; E86.0 Dehydration; E78.00 Pure hypercholesterolemia, unspecified; I73.9 Peripheral vascular disease, unspecified; K59.09 Other constipation; Z79.899 Other long term (current) drug therapy; Z86.73 Personal history of transient ischemic attack (TIA), and cerebral infarction without residual deficits
CPT/HCPCS: 36415; 71045; 80053; 83735; 83880; 84484; 85007; 85025; 85027; 87804; 93005; G0378

== ENCOUNTER 2019-08-28 05:36 | Outpatient (CLI) | payer MEDICARE, OTHER ==
[~2019-08-28] VITALS: Ht 182 cm; Wt 106.0 kg
[~2019-08-28 05:36] MED LIST changes: +ACET-168 PO; +ASPI-983 PO; +ATOR40TA70 PO; +BENZ100C18 PO; +CHOL200025 PO; +CITA20TA9 PO; +HYDR12.5 PO; +LISI-552 PO; +OMG1KC PO; +OSLT75C PO; +PSYL3.4P5 PO; +VITA1CAP PO
== END 2019-08-28 11:12 | disposition home or self-care (01) ==
LOC: PREOP 05:36
PROVIDERS: ATTEND Specialist
DX: Z01.818 Encounter for other preprocedural examination (principal)

== ENCOUNTER 2019-09-04 09:54 | Day surgery (SDC) | payer MEDICARE, OTHER ==
[~2019-09-04] VITALS: Ht 182 cm; Wt 106.0 kg
[~2019-09-04 09:54] MED LIST changes: -TRAM50TA2 PO; +TRM50T PO
[2019-09-04] MEDS ORDERED: POVIDONE (BETADINE) OPHTH SOLN 5% 30 ML OP ONE (10:15)
[2019-09-04] MEDS ORDERED: MOXIFLOXACIN OPHTH SOLN 5 MG/ML 0.3 ML SYRINGE OP ONE (10:15)
[2019-09-04] MEDS ORDERED: TIMOLOL MALEATE 0.5% 5 ML (TIMOPTIC) BTL OU PRN (10:15)
[2019-09-04] MEDS ORDERED: LIDOCAINE PF 1% 2 ML VIAL IR PRN (10:15)
[2019-09-04] MEDS: TETRACAINE 0.5% OPHTH SOLN 4 ML BTL (SINGLE DOSE ONLY) OU PRN ×4 (10:21→10:46)
[2019-09-04] MEDS: CYCLOPENTOLATE 1% (CYCLOGYL) 2 ML DROPS OP SCH ×3 (10:36→10:46)
[2019-09-04] MEDS: PHENYLEPHRINE 10% OPHTH (NEO-SYN) 5 ML BTL OU SCH ×3 (10:36→10:46)
[2019-09-04] MEDS ORDERED: MIDAZOLAM 2 MG/2 ML (VERSED) VIAL ONE (11:00)
[2019-09-04 11:01] VITALS: BP 152/71
--- NOTE | 2019-09-04 11:02 | Ophthalmologist Pre-Op Note ---
Pre-Operative Progress Note H&P Reviewed The H&P was reviewed, patient examined and no changes noted. Date H&P Reviewed: Sep 04, 2019 Time H&P Reviewed: 11:01 Pre-Op Dx Cataract, Right Eye NORMA RIVAS MD Sep 04, 2019 11:02
--- NOTE | 2019-09-04 11:27 | Ophthalmology Operative Report ---
Cataract removal/placement IOL PREOPERATIVE DIAGNOSIS: Cataract Right Eye POSTOPERATIVE DIAGNOSIS: Cataract Right Eye PROCEDURE: Cataract removal and placement of posterior chamber implant, right eye SURGEON: Pasha Rivas ANESTHESIA: Topical with sedation COMPLICATIONS: None ESTIMATED BLOOD LOSS: Minimal DESCRIPTION OF PROCEDURE: After proper informed consent was obtained, the patient, a 78 male, was taken to the Operating Room and the right eye was anesthetized with tetracaine. The right eye was then prepped and draped in the usual manner. A wire lid speculum was placed. A paracentesis was made at the left hand position. Preservative free lidocaine was injected into the anterior chamber followed by viscoelastic. A clear corneal incision was made in the temporal position. A capsulorrhexis was preformed and the central nuclear and cortical material were removed. The posterior capsule was polished and Moses 20.5 AU00T0 IOL was placed into the capsular bag. The residual viscoelastic was aspirated and balanced saline solution was injected into the anterior chamber. Moxifloxacin was injected into the anterior chamber. The wound was checked and found to be water tight. The patient tolerated the procedure well without complications. PASHA RIVAS MD Sep 04, 2019 11:27
[2019-09-04 11:40] VITALS: BP 161/79
[2019-09-04] MEDS ORDERED: acetaZOLAMIDE ER 500 MG CAP (DIAMOX SEQUELS) PO ONE (12:00)
--- NOTE | 2019-09-04 14:10 | Anesthesia-General Post-Op ---
MAC Patient Condition Mental Status/LOC: Same as Preop Cardiovascular: Satisfactory Nausea/Vomiting: Absent Respiratory: Satisfactory Pain: Controlled Complications: Absent Post Op Complications Complications None Follow Up Care/Instructions Patient Instructions None needed. Anesthesiology Discharge Order Discharge Order Patient is doing well, no complaints, stable vital signs, no apparent adverse anesthesia problems. No complications reported per nursing. BANG BENJAMIN CRNA Sep 04, 2019 14:10
== END 2019-09-04 11:40 | disposition home or self-care (01) ==
LOC: SDC 09:54
PROVIDERS: ATTEND Specialist
DX: H25.11 Age-related nuclear cataract, right eye (principal); I10 Essential (primary) hypertension; E78.5 Hyperlipidemia, unspecified; M19.90 Unspecified osteoarthritis, unspecified site; E78.00 Pure hypercholesterolemia, unspecified; E66.9 Obesity, unspecified; F41.9 Anxiety disorder, unspecified; Z79.899 Other long term (current) drug therapy; Z83.511 Family history of glaucoma; Z80.6 Family history of leukemia

== ENCOUNTER 2019-09-16 05:39 | Outpatient (CLI) | payer MEDICARE, OTHER ==
[~2019-09-16 05:39] MED LIST changes: -FELO10TA3 PO; +FELO10TA41 PO
== END 2019-09-16 10:10 | disposition home or self-care (01) ==
LOC: PREOP 05:39
PROVIDERS: ATTEND Specialist
DX: Z01.818 Encounter for other preprocedural examination (principal)

== ENCOUNTER 2019-09-18 08:39 | Day surgery (SDC) | payer MEDICARE, OTHER ==
[~2019-09-18] VITALS: Ht 182 cm; Wt 106.0 kg
[2019-09-18] MEDS ORDERED: MOXIFLOXACIN OPHTH SOLN 5 MG/ML 0.3 ML SYRINGE OP ONE (09:00)
[2019-09-18] MEDS ORDERED: POVIDONE (BETADINE) OPHTH SOLN 5% 30 ML OP ONE (09:00)
[2019-09-18] MEDS ORDERED: TIMOLOL MALEATE 0.5% 5 ML (TIMOPTIC) BTL OU PRN (09:00)
[2019-09-18] MEDS ORDERED: LIDOCAINE PF 1% 2 ML VIAL IR PRN (09:00)
[2019-09-18] MEDS: TETRACAINE 0.5% OPHTH SOLN 4 ML BTL (SINGLE DOSE ONLY) OU PRN ×4 (09:12→09:47)
[2019-09-18 09:21] VITALS: BP 145/73
[2019-09-18] MEDS: CYCLOPENTOLATE 1% (CYCLOGYL) 2 ML DROPS OP SCH ×3 (09:23→09:47)
[2019-09-18] MEDS: PHENYLEPHRINE 10% OPHTH (NEO-SYN) 5 ML BTL OU SCH ×3 (09:23→09:47)
[2019-09-18] MEDS ORDERED: MIDAZOLAM 2 MG/2 ML (VERSED) VIAL ONE (10:21)
--- NOTE | 2019-09-18 10:23 | Ophthalmologist Pre-Op Note ---
Pre-Operative Progress Note H&P Reviewed The H&P was reviewed, patient examined and no changes noted. Date H&P Reviewed: Sep 18, 2019 Time H&P Reviewed: 10:23 Pre-Op Dx Cataract, Left Eye NORMA RIVAS MD Sep 18, 2019 10:23
[2019-09-18] MEDS ORDERED: acetaZOLAMIDE ER 500 MG CAP (DIAMOX SEQUELS) PO ONE (10:30)
--- NOTE | 2019-09-18 10:50 | Ophthalmology Operative Report ---
Cataract removal/placement IOL PREOPERATIVE DIAGNOSIS: Cataract Left Eye POSTOPERATIVE DIAGNOSIS: Cataract Left Eye PROCEDURE: Cataract removal and placement of posterior chamber implant, left eye SURGEON: Pasha Rivas ANESTHESIA: Topical with sedation COMPLICATIONS: None ESTIMATED BLOOD LOSS: Minimal DESCRIPTION OF PROCEDURE: After proper informed consent was obtained, the patient, a 78 male, was taken to the Operating Room and the left eye was anesthetized with tetracaine. The left eye was then prepped and draped in the usual manner. A wire lid speculum was placed. A paracentesis was made at the left hand position. Preservative free lidocaine was injected into the anterior chamber followed by viscoelastic. A clear corneal incision was made in the temporal position. A capsulorrhexis was preformed and the central nuclear and cortical material were removed. The posterior capsule was polished and an Moses 21.0 AU00T0 was placed into the capsular bag. The residual viscoelastic was aspirated and balanced saline solution was injected into the anterior chamber. Moxifloxacin was injected into the anterior chamber. The wound was checked and found to be water tight. The patient tolerated the procedure well without complications. PASHA RIVAS MD Sep 18, 2019 10:50
[2019-09-18 11:00] VITALS: BP 155/72
--- NOTE | 2019-09-18 15:11 | Anesthesia-General Post-Op ---
MAC Patient Condition Mental Status/LOC: Same as Preop Cardiovascular: Satisfactory Nausea/Vomiting: Absent Respiratory: Satisfactory Pain: Controlled Complications: Absent Post Op Complications Complications None Follow Up Care/Instructions Patient Instructions None needed. Anesthesiology Discharge Order Discharge Order Patient is doing well, no complaints, stable vital signs, no apparent adverse anesthesia problems. No complications reported per nursing. FLASH ALEXANDER CRNA Sep 18, 2019 15:11
== END 2019-09-18 11:00 | disposition home or self-care (01) ==
LOC: SDC 08:39
PROVIDERS: ATTEND Specialist
DX: H25.12 Age-related nuclear cataract, left eye (principal); I10 Essential (primary) hypertension; I63.9 Cerebral infarction, unspecified; M19.90 Unspecified osteoarthritis, unspecified site; E66.9 Obesity, unspecified; E78.5 Hyperlipidemia, unspecified; E78.00 Pure hypercholesterolemia, unspecified; F41.9 Anxiety disorder, unspecified; Z68.32 Body mass index [BMI] 32.0-32.9, adult; Z79.899 Other long term (current) drug therapy; Z88.9 Allergy status to unspecified drugs, medicaments and biological substances; Z83.511 Family history of glaucoma

== ENCOUNTER → 2021-08-29 | Outpatient (CLI) | payer MEDICARE, OTHER ==
[~2021-08-29] MED LIST changes: +ASPI-1238 PO; -ASPI-983 PO; -LISI-552 PO; -LISI10TA2 PO; +LISI10TA25 PO; +LISI20TA26 PO
== END ==
LOC: CARD 12:00
PROVIDERS: ATTEND Internal Medicine Cardiovascular Disease
DX: I11.9 Hypertensive heart disease without heart failure (principal); I25.10 Atherosclerotic heart disease of native coronary artery without angina pectoris
CPT/HCPCS: 93306

== ENCOUNTER → 2021-10-23 | Outpatient (CLI) | payer MEDICARE, OTHER ==
[~2021-10-23] VITALS: Ht 183 cm; Wt 106.0 kg
[~2021-10-23] MED LIST changes: +REGADENOSON 0.4 MG/5 ML SYR (LEXISCAN) IV ONE
[2021-10-23] MEDS: CATHETER FLUSH 10 ML SYR IV PRN ×2 (07:11→09:02)
[2021-10-23 09:01] VITALS: BP 133/64
--- NOTE | 2021-10-23 11:29 | Cardiology Stress Test Report ---
Stress Test Report Date of Procedure/Referring: Date of Procedure: Oct 23, 2021 PCP Corey Reyes MD Admitting Physician Marielena Medina DO Indications: CP Baseline Heart Rate: 55 Baseline Blood Pressure: Blood Pressure Systolic: 133 Blood Pressure Diastolic: 64 Baseline Vitals Vital Signs Date Time Temp Pulse Resp B/P (MAP) Pulse Ox O2 Delivery O2 Flow Rate FiO2 10/23/21 09:01 76 16 133/64 (87) 95 Room Air Baseline EKG: Baseline EKG: NSR Summary After explaining the procedure to the patient, he signed a consent and then brought to the stress nuclear laboratory. Patient received 0.4 mg Lexiscan for stress test, ECG, heart rate and blood pressure were monitored continuously. Resting and stress dose of radio tracer were injected, imaging was acquired and reviewed in short axis, horizontal long axis and vertical long axis views. TID: 1.11 SSS: 2 SDS: 0 EF: 49 1. Patient tolerated Lexiscan well 2. No significant ischemia or infarction on SPECT images 3. Normal left ventricular size, EF 49% COREY REYES MD Oct 23, 2021 11:29
== END ==
LOC: CARD 07:45
PROVIDERS: ATTEND Internal Medicine Cardiovascular Disease
DX: R07.2 Precordial pain (principal); I25.10 Atherosclerotic heart disease of native coronary artery without angina pectoris
CPT/HCPCS: 78452; 93017; A9502

== ENCOUNTER 2022-01-25 13:18 | Emergency (ER) | payer MEDICARE, OTHER ==
[~2022-01-25 13:18] MED LIST changes: -REGADENOSON 0.4 MG/5 ML SYR (LEXISCAN) IV ONE
[2022-01-25 13:37] LABS: BASOPHILS # (AUTO) 0.1 10^3/uL (0.0-0.1); BASOPHILS % (AUTO) 1 % (0-10); EOSINOPHILS # (AUTO) 0.3 10^3/uL (0.0-0.3); EOSINOPHILS % (AUTO) 4 % (0-10); HEMATOCRIT 43 % (40-54); HEMOGLOBIN 14.4 g/dL (13.3-17.7); LYMPHOCYTES # (AUTO) 1.8 10^3/uL (1.0-4.0); LYMPHOCYTES % (AUTO) 25 % (12-44); MEAN CORPUSCULAR HEMOGLOBIN 30 pg (25-34); MEAN CORPUSCULAR HGB CONC 34 g/dL (32-36); MEAN CORPUSCULAR VOLUME 89 fL (80-99); MEAN PLATELET VOLUME 10.8 fL (9.0-12.2); MONOCYTES # (AUTO) 0.6 10^3/uL (0.0-1.0); MONOCYTES % (AUTO) 8 % (0-12); NEUTROPHILS # (AUTO) 4.3 10^3/uL (1.8-7.8); NEUTROPHILS % (AUTO) 62 % (42-75); PLATELET COUNT 217 10^3/uL (130-400)
[2022-01-25 13:54] LABS: ALBUMIN 4.5 GM/DL (3.2-4.5)
[2022-01-25 13:56] LABS: CALCIUM 9.9 MG/DL (8.5-10.1)
[2022-01-25 13:57] LABS: TOTAL PROTEIN 7.7 GM/DL (6.4-8.2)
[2022-01-25 13:59] LABS: BILIRUBIN,TOTAL 1.5 MG/DL (0.1-1.0)
[2022-01-25 14:00] LABS: CREATININE SERUM 1.18 MG/DL (0.60-1.30)
[2022-01-25 14:03] LABS: MAGNESIUM 1.8 MG/DL (1.6-2.4)
--- NOTE | 2022-01-25 14:12 | ED General ---
General Chief Complaint: Neuro-Stroke Like Symptoms Stated Complaint: LIGHT HEADED - WEAKNESS Nursing Triage Note: PT TO RM 8 BC WC WITH C/O FEELING LIGHT HEADED, WEAK AND NAUSEA THAT ALL STARTED THIS MORNING WHILE OUTSIDE DOING SOME WORK (WILDER GLASS) Source of Information: Patient, Family, Old Records Exam Limitations: No Limitations (TATE ZEPEDA MD) History of Present Illness Date Seen by Provider: January 25, 2022 Time Seen by Provider: 13:40 Initial Comments 81 year old male with history of prior stroke affecting right arm and leg presents to the ER today due to sudden onset lightheadedness, feeling as though the ground was unsteady, and nausea. He was outside working in the yard this morning and reports going to an area to pee off the back porch when the symptoms began. He thinks this occured at 10:30am today. He was able to make it inside to his chair without falling and denies loss of consciousness. He noticed some left sided arm weakness when the symptoms began. He was able to be helped to the car by his son and neighbour and was brought here. He reports feeling totally normal preceding the onset of systems which have brought him here today. He reports having mild head pain in his forehead when the symptoms began. Timing/Duration: 1-3 Hours (WILDER GLASS) Initial Comments This right-handed 81-year-old gentleman presents to the emergency room with abrupt onset of a poorly defined dizziness characterized as lightheadedness, vertigo, and disequilibrium. This was accompanied by weakness of the left arm. He was unable to walk by himself back into the house. He has a known history of carotid stenosis with imaging noted as far back as 2014. He has a pending appointment with Dr. Gallegos on February 13 for consultation. His states he had a recent carotid ultrasound performed at Dr. Reyes's clinic which prompted the consultation. Stroke activation was paged on patient arrival. NIH was 3 with points given for inability to identify month, discoordination of the right arm which is stated as chronic and unchanged, and inability to accurately read the phrases shown which is likely due to his relative illiteracy. There were no significant definite acute deficits on my exam as the left arm weakness noted by the patient and noted on exam by the medical student had resolved by the time of my exam. (TATE ZEPEDA MD) Allergies and Home Medications Allergies Coded Allergies: No Known Drug Allergies (Unverified , 08/28/19) Patient Home Medication List Home Medication List Reviewed: Yes (TTAE ZEPEDA MD) Acetaminophen (Acetaminophen Extra Strength) 500 Mg Tablet, 500 MG PO Q4H PRN for PAIN-MILD, (Reported) Entered as Reported by: RASHAUN DAVILA on 10/14/18 0850 Aspirin (Aspirin EC) 81 Mg Tablet.dr, 81 MG PO HS, (Reported) Entered as Reported by: RASHAUN DAVILA on 10/14/18 0829 Atorvastatin Calcium (Atorvastatin Calcium) 40 Mg Tablet, 40 MG PO HS, (Reported) Entered as Reported by: ELOISA BLACKWELL on 10/13/18 1729 Cholecalciferol (Vitamin D3) (Vitamin D3) 2,000 Unit Tablet, 2,000 UNIT PO BID, (Reported) Entered as Reported by: RASHAUN DAVILA on 10/14/18 0829 Citalopram Hydrobromide (Citalopram HBr) 20 Mg Tablet, 20 MG PO DAILY, (Reported) Entered as Reported by: RASHAUN DAVILA on 10/14/18 0829 Felodipine (Felodipine ER) 10 Mg Tab.er.24h, 10 MG PO HS, (Reported) Entered as Reported by: RASHAUN DAVILA on 04/27/15 0939 Hydrochlorothiazide (Hydrochlorothiazide) 12.5 Mg Capsule, 12.5 MG PO DAILY, (Reported) Entered as Reported by: RASHAUN DAVILA on 10/14/18 0829 Lisinopril (Lisinopril) 20 Mg Tablet, 20 MG PO DAILY, (Reported) Entered as Reported by: RASHAUN DAVILA on 10/14/18 0829 [place] 3 Polyunsat Fatty Acids (Fish Oil 1,000 mg Capsule) 1,000 Mg Cap, 1,000 MG PO BID, (Reported) Entered as Reported by: RASHAUN DAVILA on 10/14/18 0829 Psyllium Husk/Aspartame (Metamucil Fiber Singles Packet) 3.4 Gm Powd.pack, 3.4 GM PO DAILY, (Reported) Entered as Reported by: RASHAUN DAVILA on 10/14/18 0829 Vitamin B Complex (Vitamin B Complex) 1 Each Capsule, 1 CAP PO DAILY, (Reported) Entered as Reported by: RASHAUN DAVILA on 10/14/18 0829 Review of Systems Review of Systems Constitutional: No chills, No fever; weakness (some new ) EENTM: No hearing loss, No vision loss, No throat pain Respiratory: No cough; short of breath (mild) Cardiovascular: No chest pain, No palpitations Gastrointestinal: No abdominal pain, No diarrhea; nausea; No vomiting Genitourinary: No dysuria; frequency (normal) Musculoskeletal: No muscle pain; muscle weakness (left arm) Skin: no symptoms reported Psychiatric/Neurological: Denies Numbness; Weakness (left arm) Hematologic/Lymphatic: No Symptoms Reported Immunological/Allergic: no symptoms reported (WILDER GLASS) Past Mjmamrk-Gdogqc-Brdrgk Hx Patient Social History Tobacco Use?: No Use of E-Cig and/or Vaping dev: No Substance use?: No Alcohol Use?: No Pt feels they are or have been: No (WILDER GLASS) Immunizations Up To Date Tetanus Booster (TDap): More than 5yrs PED Vaccines UTD: No Influenza Vaccine Up-to-Date: Yes; Up-to-Date First/Initial COVID19 Vaccinat: 2020 Second COVID19 Vaccination Virgilio: 2020 (WILDER GLASS) Seasonal Allergies Seasonal Allergies: No (WILDER GLASS) Past Medical History Surgery/Hospitalization HX: HERNIA, KNEE HTN Surgeries: Yes (HERNIA, LEFT KNEE) Abdominal, Adenoidectomy, Joint Replacement, Orthopedic, Tonsillectomy Respiratory: No Cardiac: Yes High Cholesterol, Hypertension, Peripheral Vascular Neurological: Yes (CVA 01/24/15) Stroke Reproductive Disorders: No Sexually Transmitted Disease: No HIV/AIDS: No Gastrointestinal: No Chronic Constipation Musculoskeletal: Yes Arthritis Endocrine: 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 0.0oz. 111.496960vt; 31.65 BMI Method:Stated General Appearance: Obese, Other (slightly heavy breathing) HEENT: PERRL/EOMI; No Moist Mucous Membranes (mouth appeared slightly dry) Neck: Non Tender, Supple Respiratory: Lungs Clear, Normal Breath Sounds, No Respiratory Distress Cardiovascular: Regular Rate, Rhythm, No Edema, No Murmur, Normal Peripheral Pulses Gastrointestinal: Normal Bowel Sounds, Non Tender Extremity: No Calf Tenderness, No Pedal Edema, Other (weakness of right arm and leg chronically from prior stroke. Left arm seemed difficult to move although patient was able to hold it elevated in place. He reported it was harder than normal to move.) Neurologic/Psychiatric: Alert, powerhouse tender II-XII Norm as Tested, Other (alert x2. disoriented to month. normal sensory exam.) Skin: Normal Color, Warm/Dry Lymphatic: No Adenopathy (WILDER GLASS) Progress/Results/Core Measures Suspected Sepsis SIRS Temperature: Pulse: 56 Respiratory Rate: 20 Laboratory Tests 01/25/22 13:22: White Blood Count 7.0 Blood Pressure 111 /76 Mean: 88 Laboratory Tests 01/25/22 13:22: Creatinine 1.18, INR Comment 1.0, Platelet Count 217, Total Bilirubin 1.5H (WILDER GLASS) Results/Orders Lab Results Laboratory Tests Test 01/25/22 13:22 01/25/22 13:48 01/25/22 14:45 Range/Units White Blood Count 7.0 4.3-11.0 10^3/uL Red Blood Count 4.86 4.30-5.52 10^6/uL Hemoglobin 14.4 13.3-17.7 g/dL Hematocrit 43 40-54 % Mean Corpuscular Volume 89 80-99 fL Mean Corpuscular Hemoglobin 30 25-34 pg Mean Corpuscular Hemoglobin Concent 34 32-36 g/dL Red Cell Distribution Width 12.9 10.0-14.5 % Platelet Count 217 130-400 10^3/uL Mean Platelet Volume 10.8 9.0-12.2 fL Immature Granulocyte % (Auto) 0 % Neutrophils (%) (Auto) 62 42-75 % Lymphocytes (%) (Auto) 25 12-44 % Monocytes (%) (Auto) 8 0-12 % Eosinophils (%) (Auto) 4 0-10 % Basophils (%) (Auto) 1 0-10 % Neutrophils # (Auto) 4.3 1.8-7.8 10^3/uL Lymphocytes # (Auto) 1.8 1.0-4.0 10^3/uL Monocytes # (Auto) 0.6 0.0-1.0 10^3/uL Eosinophils # (Auto) 0.3 0.0-0.3 10^3/uL Basophils # (Auto) 0.1 0.0-0.1 10^3/uL Immature Granulocyte # (Auto) 0.0 0.0-0.1 10^3/uL Prothrombin Time 13.5 12.2-14.7 SEC INR Comment 1.0 0.8-1.4 Activated Partial Thromboplast Time 35 24-35 SEC D-Dimer 4.99 H 0.00-0.49 UG/ML Sodium Level 139 135-145 MMOL/L Potassium Level 4.0 3.6-5.0 MMOL/L Chloride Level 103 98-107 MMOL/L Carbon Dioxide Level 21 21-32 MMOL/L Anion Gap 15 H 5-14 MMOL/L Blood Urea Nitrogen 22 H 7-18 MG/DL Creatinine 1.18 0.60-1.30 MG/DL Estimat Glomerular Filtration Rate 62 BUN/Creatinine Ratio 19 Glucose Level 100 70-105 MG/DL Calcium Level 9.9 8.5-10.1 MG/DL Corrected Calcium 9.5 8.5-10.1 MG/DL Magnesium Level 1.8 1.6-2.4 MG/DL Total Bilirubin 1.5 H 0.1-1.0 MG/DL Aspartate Amino Transf (AST/SGOT) 15 5-34 U/L Alanine Aminotransferase (ALT/SGPT) 17 0-55 U/L Alkaline Phosphatase 63 40-136 U/L Troponin I < 0.028 <0.028 NG/ML Total Protein 7.7 6.4-8.2 GM/DL Albumin 4.5 3.2-4.5 GM/DL Glucometer 99 70-110 MG/DL Urine Color YELLOW Urine Clarity CLEAR Urine pH 6.5 5-9 Urine Specific [place] 1.025 H 1.016-1.022 Urine Protein NEGATIVE NEGATIVE Urine Glucose (UA) NEGATIVE NEGATIVE Urine Ketones NEGATIVE NEGATIVE Urine Nitrite NEGATIVE NEGATIVE Urine Bilirubin NEGATIVE NEGATIVE Urine Urobilinogen 0.2 < = 1.0 MG/DL Urine Leukocyte Esterase NEGATIVE NEGATIVE Urine RBC (Auto) NEGATIVE NEGATIVE Urine RBC NONE /HPF Urine WBC NONE /HPF Urine Squamous Epithelial Cells RARE /HPF Urine Crystals NONE /LPF Urine Bacteria NEGATIVE /HPF Urine Casts NONE /LPF Urine Mucus NEGATIVE /LPF Urine Culture Indicated NO (TATE ZEPEDA MD) My Orders Orders - TATE ZEPEDA MD Cbc With Automated Diff (01/25/22 13:28) Comprehensive Metabolic Panel (01/25/22 13:28) Magnesium (01/25/22 13:28) Ua Culture If Indicated (01/25/22 13:28) Ed Iv/Invasive Line Start (01/25/22 13:28) Ekg Tracing (01/25/22 13:28) Monitor-Rhythm Ecg Trace Only (01/25/22 13:28) Protime With Inr (01/25/22 13:42) Partial Thromboplastin Time (01/25/22 13:42) Fibrin Degradation Products (01/25/22 13:42) Troponin I [place] (01/25/22 13:42) Chest 1 View, Ap/Pa Only (01/25/22 13:42) Nothing By Mouth (01/25/22 Lunch) Accucheck Stat ONCE (01/25/22 13:42) Vital Signs Stroke Patient Q15M (01/25/22 13:42) Ct Head Wo-R/O Stroke (01/25/22 13:42) O2 (01/25/22 13:42) Intake & Output ,, (01/25/22 13:42) Dysphagia Screening Tool Q10MX1 (01/25/22 13:42) Post Thrombolytic Adminstratio (01/25/22 13:42) Lipid Panel (01/26/22 06:00) Ondansetron Injection (Zofran Injectio (01/25/22 14:30) Ct Angio Head/Neck (01/25/22 15:36) Iohexol Injection (Omnipaque 350 Mg/Ml 1 (01/25/22 15:45) Received Contrast (Hold Metformin- Contr (01/25/22 15:45) Ns (Ivpb) (Sodium Chloride 0.9% Ivpb Bag (01/25/22 15:45) Sodium Chloride Flush (Catheter Flush Sy (01/25/22 15:45) Aspirin Tablet (Aspirin Tablet) (01/25/22 17:15) Ns Iv 500 Ml (Sodium Chloride 0.9%) (01/25/22 17:15) (TATE ZEPEDA MD) Medications Given in ED Current Medications Medications Dose Ordered Sig/Michael Route Start Time Stop Time Status Last Admin Dose Admin Aspirin 325 mg ONCE ONCE PO 01/25/22 17:15 01/25/22 17:16 DC 01/25/22 17:26 325 MG Iohexol 75 ml ONCE ONCE IV 01/25/22 15:45 01/25/22 15:46 DC 01/25/22 15:49 75 ML Ondansetron HCl 4 mg ONCE ONCE IVP 01/25/22 14:30 01/25/22 14:31 DC 01/25/22 14:48 4 MG Sodium Chloride 10 ml NEEDED PRN IV 01/25/22 15:45 01/25/22 15:49 10 ML Sodium Chloride 100 ml ONCE ONCE IV 01/25/22 15:45 01/25/22 15:46 DC 01/25/22 15:49 80 ML Sodium Chloride 500 ml @ 0 mls/hr Q0M ONCE IV 01/25/22 17:15 01/25/22 17:16 DC 01/25/22 17:26 500 MLS/HR (TATE ZEPEDA MD) Vital Signs/I&O 01/25/22 01/25/22 13:33 20:28 Temp 36.4 36.4 Pulse 56 56 Resp 20 18 B/P (MAP) 111/76 (88) 137/91 (TATE ZEPEDA MD) Vital Signs/I&O Capillary Refill : (WILDER GLASS) Blood Pressure Mean: 88 Point of Care Testing Finger Stick Blood Glucose: 99 Blood Glucose Action Taken: DR Silverio NOTIFIED (WILDER GLASS) Progress Note #1: Time: 16:55 Progress Note Patient's left arm weakness dissipated between the medical student's exam and my exam. Noncontrast CT of the head was unremarkable for acute abnormalities. CT angiogram demonstrated a possibly hemodynamically significant stenosis of about 70% in the right ICA. The left ICA contained a stenosis of approximately 50%. Patient appeared to have significant symptoms that could be associated with the stenosis including dizziness and the left arm weakness. There is some minimal residual dizziness present now. The situation was discussed with Dr. Gallegos, stroke neurologist at [facility] at 16:24. She recommends prompt evaluation by a vascular surgeon as well as evaluation by neurology including MRI of the brain to rule out acute CVA. If CVA is present, then assessment by vascular surgeon should be expedited. Patient prefers to be transferred to [facility] in [place] where he has a pending vascular consult with Dr. Gallegos. This is an acceptable alternative to [facility] as IR therapy is not necessary at this time. Progress Note #2: Time: 18:58 Progress Note Patient is stable and awaiting transport. I discussed with neurology and the hospitalist service at [facility] and transfer was accepted. Aspirin 325 mg was given after patient passed dysphagia screen. He is otherwise being kept n.p.o. at this time. (TATE ZEPEDA MD) ECG Initial ECG Impression Date: January 25, 2022 Initial ECG Impression Time: 14:22 Initial ECG Rate: 54 Initial ECG Rhythm: Normal Sinus Initial ECG Intervals: Normal Initial ECG Impression: Normal Comment Sinus rhythm with no diagnostic ST elevation or depression. No abnormal intervals or axis deviation. (TATE ZEPEDA MD) Diagnostic Imaging Diagonstic Imaging: Xray, CT Plain Films/CT/US/NM/MRI: chest, head Comments Chest x ray and head CT have been reviewed by me with preliminary reports by radiology below. NAME: SANJUANITA HUYNH [facility] REC#: [id number] PT STATUS: REG ER : 1940 PHYSICIAN: TATE ZEPEDA MD ADMIT DATE: 01/25/22/ER Draft Date of Exam:01/25/22 CT HEAD WO-R/O STROKE PROCEDURE: CT head wo r/o stroke. TECHNIQUE: Multiple contiguous axial images were obtained through the brain without the use of intravenous contrast. Auto Exposure Controls were utilized during the CT exam to meet ALARA standards for radiation dose reduction. INDICATION: Weakness and vomiting. COMPARISON: Comparison is made with prior head CT from 01/29/2015. FINDINGS: Large area of encephalomalacia in the left posterior temporo-occipital lobe is again noted, consistent with prior infarct. Old lacunar infarcts in the right basal ganglia are also noted. There is no midline shift. No acute intra-axial or extra-axial hemorrhage is detected. The cisterns are patent. The visualized paranasal sinuses are clear. IMPRESSION: Chronic changes. No acute intracranial process is detected. Dictated on workstation # [id number] Dict: 01/25/22 1411 Trans: 01/25/221423 [facility] [id number] Interpreted by: VASHTI WATKINS MD Electronically signed by: NAME: SANJUANITA HUYNH [facility] REC#: [id number] PT STATUS: REG ER : 1940 PHYSICIAN: TATE ZEPEDA MD ADMIT DATE: 01/25/22/ER Draft Date of Exam:01/25/22 CHEST 1 VIEW, AP/PA ONLY INDICATION: Altered mental status. EXAMINATION: Portable chest at 2:10 p.m. FINDINGS: Heart size and pulmonary vascularity are normal. Lungs are clear. There are no effusions or pneumothoraces. IMPRESSION: No acute abnormalities in the chest. Dictated on workstation # [id number] Dict: 01/25/22 1417 Trans: 01/25/221421 [id number] Interpreted by: LIZETH LANIER MD Electronically signed by: (WILDER GLASS) Comments CT head viewed by me and discussed with the radiologist. CT was read and negative result communicated from the radiologist at 14:13. Diagonstic Imaging: CT Plain Films/CT/US/NM/MRI: other (CT angiogram head and neck viewed by me and report reviewed. See report below:) Comments NAME: SANJUANITA HUYNH [facility] REC#: [id number] PT STATUS: REG ER : 1940 PHYSICIAN: TATE ZEPEDA MD ADMIT DATE: 01/25/22/ER Signed Date of Exam:01/25/22 CT ANGIO HEAD/NECK PROCEDURE: CT angiography of the head and CT angiography of the neck with and without contrast. TECHNIQUE: Contiguous noncontrast images were obtained from the skull base through the vertex. After intravenous contrast administration, helical CT angiography of the neck was performed. Source data was reformatted into 3D MIP projections. Delayed postcontrast acquisition was also obtained. Auto Exposure Controls were utilized during the CT exam to meet ALARA standards for radiation dose reduction. INDICATION: Weakness and vomiting. CT ANGIOGRAM NECK: Aortic arch and the branching pattern of the great vessels are unremarkable. There is some non-stenosing plaque in the great vessels but no acute abnormality. The vertebral arteries are patent, the right dominant; the left nonpathologic. The common carotids are patent. There are mixed calcified and noncalcified plaques at the carotid bulbs and bifurcations extending into the proximal ICAs. The proximal right ICA is stenosed by about 70%; the left is stenosed about 50%. Cervical internal carotids beyond that level are very tortuous but nonfocal and patent. CT ANGIOGRAM HEAD: There are calcified plaques in the cavernous segments of the intracranial carotids without their hemodynamically significant stenosis. The A1 segments, the A-comm, and the anterior cerebral arteries are widely patent. The bilateral middle cerebral arterial segments and those vessels' primary branches are patent. The intradural vertebral arteries and the basilar are patent. The left EXPERIMENTAL WORKER at its P1 segment shows a critical stenosis or short segmental occlusion. There is some distal flow within that vessel at its P2 and T3 segments as well as to the P4 level, but it is a very small caliber. This is in keeping with the encephalomalacia from a remote old left EXPERIMENTAL WORKER territorial infarct, and this is believed chronic. The right EXPERIMENTAL WORKER segments are widely patent. IMPRESSION: 1. Likely hemodynamically significant proximal right ICA stenosis owing to soft and hard plaque. Narrowing is approximately 70%. 50% stenosis of the proximal left ICA. Widely patent cervical vertebrals. 2. CT angiogram head shows a short segmental occlusion or critical stenosis at the P1 segment on the left corresponding to a remote old left EXPERIMENTAL WORKER territorial infarct. This is believed chronic. The right EXPERIMENTAL WORKER and basilar are patent. 3. Intracranial carotid atherosclerotic plaques, non-stenosing. Anterior and middle cerebral arterial segments are patent. No anterior circulation, thrombus, or large vessel occlusion. Dictated by: Dictated on workstation # [id number] Dict: 01/25/22 1558 Trans: 01/25/22 1711 [id number] Interpreted by: CHICO AMBROSE Electronically signed by: CHICO AMBROSE 01/25/22 171 (TATE ZEPEDA MD) Departure Impression Primary Impression: Stenosis of right internal carotid artery Additional Impressions: Left arm weakness Dizziness Disposition: XFER SHT-TRM HOSP Condition: Stable Transfer Transfer Reason: Exceeds level of care Time Spoke to Accepting Phy: 17:00 Transfer Progress Notes Case was reviewed with Dr. Mejía (neurology) and Dr. Bone (hospitalist) at [facility] in [place]. Transfer accepted. Transfer Time: 20:28 Transfer Facility: [facility] Method of Transfer: EMS (TATE ZEPEDA MD) Departure-Patient Inst. Referrals: REMIGIO PASCUAL DO (PCP/Family) Primary Care Physician Medical Student Attestation and Attending Note: I have personally interviewed and examined this patient along with Wilder Glass, MS 3. I have reviewed student documentation including history, physical, and assessments. I agree with the documentation except where otherwise noted. Exam: General: Alert, oriented, no acute distress, well developed HEENT: Normocephalic and atraumatic Heart: Regular rate and rhythm without murmur Lungs: Clear to auscultation bilaterally with normal effort Abdomen: Soft, nontender, nondistended, normal bowel sounds Neuropsych: Alert, patient disoriented to month, weakness of left arm dissipated between student exam and my exam, discoordination of the right arm stated as chronic and unchanged from prior stroke, no other acute neurologic deficits appreciated. Extremities: Edema of the legs equal bilaterally Skin: Warm and dry without rashes (TATE ZEPEDA MD) Copy Copies To 1: REMIGIO PASCUAL CARSON January 25, 2022 14:12 TATE ZEPEDA MD January 25, 2022 17:03
[2022-01-25 14:18] LABS: PROTHROMBIN TIME PATIENT 13.5 SEC (12.2-14.7)
--- NOTE | 2022-01-25 14:22 | Diagnostic Imaging Report ---
INDICATION: Altered mental status. EXAMINATION: Portable chest at 2:10 p.m. FINDINGS: Heart size and pulmonary vascularity are normal. Lungs are clear. There are no effusions or pneumothoraces. IMPRESSION: No acute abnormalities in the chest. Dictated by: Dictated on workstation # [id number]
[2022-01-25 14:25] LABS: FIBRIN DEGRADATION PRODUCTS 4.99 UG/ML (0.00-0.49)
--- NOTE | 2022-01-25 14:25 | Diagnostic Imaging Report ---
PROCEDURE: CT head wo r/o stroke. TECHNIQUE: Multiple contiguous axial images were obtained through the brain without the use of intravenous contrast. Auto Exposure Controls were utilized during the CT exam to meet ALARA standards for radiation dose reduction. INDICATION: Weakness and vomiting. COMPARISON: Comparison is made with prior head CT from 01/29/2015. FINDINGS: Large area of encephalomalacia in the left posterior temporo-occipital lobe is again noted, consistent with prior infarct. Old lacunar infarcts in the right basal ganglia are also noted. There is no midline shift. No acute intra-axial or extra-axial hemorrhage is detected. The cisterns are patent. The visualized paranasal sinuses are clear. IMPRESSION: Chronic changes. No acute intracranial process is detected. Dictated by: Dictated on workstation # [id number]
[2022-01-25] MEDS ORDERED: ONDANSETRON 4 MG/2 ML (SDV) Z0FRAN IVP ONE (14:30)
[2022-01-25 14:53] LABS: BILIRUBIN,URINE NEGATIVE (NEGATIVE); CLARITY,URINE CLEAR; COLOR,URINE YELLOW; GLUCOSE, URINE (UA) NEGATIVE (NEGATIVE); KETONES,URINE NEGATIVE (NEGATIVE); LEUKOCYTE ESTERASE ,URINE NEGATIVE (NEGATIVE); NITRITE,URINE NEGATIVE (NEGATIVE); PH,URINE 6.5 (5-9); PROTEIN,URINE NEGATIVE (NEGATIVE)
[2022-01-25 15:02] LABS: BACTERIA,URINE NEGATIVE /HPF; SQUAMOUS EPITHELIAL CELL,UR RARE /HPF
[2022-01-25] MEDS ORDERED: HOLD METFORMIN - RECEIVED CONTRAST 20 ML VIAL IV SCH (15:45)
[2022-01-25] MEDS ORDERED: IOHEXOL 350 MG/ML 100 ML (OMNIPAQUE 350) VIAL IV ONE (15:45)
[2022-01-25] MEDS ORDERED: NS 100 ML (IVPB) BAG IV ONE (15:45)
[2022-01-25] MEDS ORDERED: CATHETER FLUSH 10 ML SYR IV PRN (15:45)
--- NOTE | 2022-01-25 16:12 | Diagnostic Imaging Report ---
PROCEDURE: CT angiography of the head and CT angiography of the neck with and without contrast. TECHNIQUE: Contiguous noncontrast images were obtained from the skull base through the vertex. After intravenous contrast administration, helical CT angiography of the neck was performed. Source data was reformatted into 3D MIP projections. Delayed postcontrast acquisition was also obtained. Auto Exposure Controls were utilized during the CT exam to meet ALARA standards for radiation dose reduction. INDICATION: Weakness and vomiting. CT ANGIOGRAM NECK: Aortic arch and the branching pattern of the great vessels are unremarkable. There is some non-stenosing plaque in the great vessels but no acute abnormality. The vertebral arteries are patent, the right dominant; the left nonpathologic. The common carotids are patent. There are mixed calcified and noncalcified plaques at the carotid bulbs and bifurcations extending into the proximal ICAs. The proximal right ICA is stenosed by about 70%; the left is stenosed about 50%. Cervical internal carotids beyond that level are very tortuous but nonfocal and patent. CT ANGIOGRAM HEAD: There are calcified plaques in the cavernous segments of the intracranial carotids without their hemodynamically significant stenosis. The A1 segments, the A-comm, and the anterior cerebral arteries are widely patent. The bilateral middle cerebral arterial segments and those vessels' primary branches are patent. The intradural vertebral arteries and the basilar are patent. The left [employer] at its P1 segment shows a critical stenosis or short segmental occlusion. There is some distal flow within that vessel at its P2 and T3 segments as well as to the P4 level, but it is a very small caliber. 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 The right [employer] segments are widely patent. IMPRESSION: 1. Likely hemodynamically significant proximal right ICA stenosis owing to soft and hard plaque. Narrowing is approximately 70%. 50% stenosis of the proximal left ICA. Widely patent cervical vertebrals. 2. 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 The right [employer] and basilar are patent. 3. Intracranial carotid atherosclerotic plaques, non-stenosing. Anterior and middle cerebral arterial segments are patent. No anterior circulation, thrombus, or large vessel occlusion. Dictated by: Dictated on workstation # [id number]
[2022-01-25] MEDS ORDERED: ASPIRIN 325 MG (5 GR) TABLET PO ONE (17:15)
[2022-01-25] MEDS ORDERED: NS IV 500 ML 500 ML IV ONE (17:15)
[2022-01-25 20:28] VITALS: BP 137/91
== END 2022-01-25 20:28 | disposition short-term general hospital (02) ==
LOC: EDUNIT# 13:18 → ER 13:19
DX: R42 Dizziness and giddiness (principal); I65.21 Occlusion and stenosis of right carotid artery; I10 Essential (primary) hypertension; M62.81 Muscle weakness (generalized); Z86.73 Personal history of transient ischemic attack (TIA), and cerebral infarction without residual deficits
CPT/HCPCS: 36415; 70450; 70496; 70498; 71045; 80053; 81000; 82947; 83735; 84484; 85025; 85379; 85610; 85730; 93005; 93041

== ENCOUNTER → 2023-01-18 | Outpatient (CLI) | payer MEDICARE, OTHER ==
[~2023-01-18] MED LIST changes: +CLOP-31 PO; -CLOP75TA69 PO
== END ==
LOC: CARD 11:40
PROVIDERS: ATTEND Internal Medicine Cardiovascular Disease
DX: I25.10 Atherosclerotic heart disease of native coronary artery without angina pectoris (principal); I11.9 Hypertensive heart disease without heart failure
CPT/HCPCS: 93306